=== PATIENT | female | born 1955 | race Caucasian/White ===

== ENCOUNTER 2019-01-30 09:04 | Day surgery (SDC) | payer OTHER, SELFPAY ==
--- NOTE | 2019-01-29 18:17 | PM.PREOP ---
Pre-operative Note Interval Note History & Physical reviewed/Exam performed by Physician: Yes Changes to H&P: No
--- NOTE | 2019-01-29 18:17 | PM.OP.1 ---
Operative Date/Time/Diagnoses Date of procedure: 01/30/19 Time of procedure: 10:45 Procedure & Clinicians Procedure: Preoperative diagnoses: 1. Advanced right nuclear sclerotic and cortical cataract. 2. Recent Vitreous detachment. 3. Ptosis 4. Previous trauma 5. Nystagmus 6. Macular degeneration. Postoperative diagnoses: 1. Complex Cataract removed by phacoemulsification with placement of posterior chamber intraocular lens. Procedure: Complex phacoemulsification with posterior chamber intraocular lens implant and use of Visudyne . Surgeon: Katty Bates MD Complications: None Specimen: None Implant: ZCBOO+22.5 Blood loss: None Anesthesia: Retrobulbar with monitored standby Description of procedure: Patient presents with a complaint of decreased vision due to cataract which is affecting activities of daily living. The patient wants surgery to improve vision. She has history of bilateral ocular trauma with swelling in childhood as well as corneal partial laceration. She has macular degeneration. A recent vitreous detachment without retinal tear. Some diplopia in díaz of gaze with restriction nystagmus and ptosis. She will require capsular dye in order to improve safety due to diffuse cortical anterior cataract. The patient was taken to the operating room and given IV sedation. A retrobulbar block consisting of 6 cc of 2% xylocaine without epinephrine mixed half and half with 0.5% Marcaine with 1 cc of hyaluronidase added is placed between the medial and lateral 1/3 of the inferior orbital rim. Lid akinesia is obtain with 1% xylocaine with epinephrine infiltrated along the lid margin. The eye is manually massaged for 30 sec, prepped using Betadine solution, and draped in the usual sterile fashion. Temporal approach was made, a 1 mm side-port incision was made 90? from the proposed clear corneal incision position. Phenylephrine 1.5% mixed with 1% xylocaine 0.2 cc was placed into the anterior chamber. An air bubble was placed. The Visudyne capsular dye was then diffusely placed over the anterior capsule to improve visibility. The diet and irrigated from the anterior chamber. Viscoat followed by Héctor was then placed. A 2.6 mm clear incision with a 2.6 mm blade was placed. A 360 degree capsulorrhexis style capsulotomy was then performed with a cystitome needle on a Healon. Hydrodelineation and hydrodissection were performed. The phacoemulsification unit is introduced, and sculpting notice used to groove the central lens. It is then removed in chopping mode. Epi nucleus is removed with epinuclear mode and irrigation aspiration was used to remove the peripheral cortex. The posterior capsule is polished. The intraocular lens is selected, inspected, power confirmed, and placed in the posterior chamber. The pupil was constricted with Miostat. There was no zonular weakness. The wound was stromally hydrated and tested for leaks, there was none and it was left sutureless. Vigamox 0.1 cc was placed into the anterior chamber. Kenalog 0.2 cc was placed in the superior subconjunctival space. A drop of antibiotic and was placed and the eye was patched and shielded. The patient was stable and returned to the recovery room in excellent condition. Dictated by: Katty Bates MD Copy to: [facility]
[2019-01-30] MEDS: PROPARACAINE 0.5% OPHTH SOL 2 DROPS EYE-OP (09:33)
[2019-01-30] MEDS: CATARACT EYE COMPOUND (10 DROPS/SYRINGE) 3 DROPS EYE-OP (09:45)
[2019-01-30 09:52] VITALS: BP 133/82; PULSE 100; RESP 16; TEMP 36.6; O2SAT 100; BMI 52.3
--- NOTE | 2019-01-30 11:16 | SUR.OPER ---
Supine on eye stretcher, head on extension cradle secured with tape. Arms tucked at sides with blanket. Pillow under knees.
[2019-01-30] MEDS: MOXIFLOXACIN OPHTH DROPS 3 ML BOTTLE 2 DROPS INJ ×2 (11:27)
[2019-01-30] MEDS: TRIAMCINOLONE 50 MG/5 ML VIAL INJ (11:28)
[2019-01-30] MEDS: HYALURONATE SODIUM 10 MG/ML SYRINGE INJ (11:29)
[2019-01-30] MEDS: CHONDROIDTIN/SOD HYALURONATE 1.05 ML SYRINGE INTRAOCULA (11:29)
[2019-01-30] MEDS: BALANCED SALT IRRIG SOLN NO.2 15 ML IRR (11:29)
[2019-01-30] MEDS: CARBACHOL 1.5 ML VIAL INJ (11:29)
[2019-01-30] MEDS: OFLOXACIN 0.3% OPHTH 5 ML 2 DROPS EYE-RIGHT (11:30)
[2019-01-30] MEDS: ERYTHROMYCIN OPHTH 1 GM OINT 1 APPLIC EYE-RIGHT (11:31)
[2019-01-30] MEDS: BALANCED SALT IRRIG SOLN NO.2 500 ML, EPINEPHrine 1 MG IRR (11:31)
[2019-01-30] MEDS: TRYPAN BLUE 0.5 ML SYRINGE INJ (11:32)
[2019-01-30 11:59] VITALS: BP 130/69; PULSE 82; RESP 15; TEMP 36; O2SAT 100
[2019-01-30] MEDS: LIDOCAINE 1% W/EPI INJ 20 ML INJ (12:00)
[2019-01-30] MEDS: LIDOCAINE 2% 4 ML, BUPIVACAINE 0.5% (PF) 4 ML, HYALURONIDASE 150 UNIT INJ (12:00)
[2019-01-30 12:14] VITALS: BP 136/71; PULSE 79; RESP 16; TEMP 36.3; O2SAT 100
== END 2019-01-30 12:22 | disposition home or self-care (01) ==
LOC: OR 09:07
PROVIDERS: PCP Family Medicine; Visit Provider Ophthalmology
PROC: (CPT 66982; principal; 2019-01-30 10:45)
DX: H25.811 Combined forms of age-related cataract, right eye (principal); H02.409 Unspecified ptosis of unspecified eyelid; H55.00 Unspecified nystagmus; H35.30 Unspecified macular degeneration; H43.819 Vitreous degeneration, unspecified eye
CPT/HCPCS: 66982; J0171; J2704; J3301; J3470

== ENCOUNTER 2019-02-13 09:54 | Day surgery (SDC) | payer OTHER, SELFPAY ==
--- NOTE | 2019-02-09 09:55 | PM.PREOP ---
Pre-operative Note Interval Note History & Physical reviewed/Exam performed by Physician: Yes Changes to H&P: No
--- NOTE | 2019-02-09 09:55 | PM.OP.1 ---
Procedure & Clinicians Procedure: Preoperative diagnoses: 1. Left cataract surgery. 2. Nuclear sclerotic and cortical cataract. Postoperative diagnoses: 1. Left cataract surgery with placement of a posterior chamber intraocular lens implant. Surgeon: Katty Bates MD Complications: none Specimen: None Implant: ZCBOO+22.0 Blood loss: None Anesthesia: Retrobulbar with monitored standby. Description of procedure: Dictated by: Katty Bates MD Copy to: [facility] Post operative diagnoses: 1. Cataract removed with use of capsular dye with placement of a posterior chamber intraocular lens. Procedure: Phacoemulsification with posterior chamber intraocular lens implant Surgeon: Katty Bates MD Blood loss: None Anesthesia: Retrobulbar with monitored standby Description of procedure: Patient has presented with decreased vision due to cataract which is affecting activities of daily living. The patient wants surgery to improve vision. The patient was taken to the operating room and given IV sedation. A retrobulbar block consisting of 6 cc of 2% xylocaine without epinephrine mixed half and half with 0.5% Marcaine with 1 cc of hyaluronidase added is placed between the medial and lateral 1/3 of the inferior orbital rim. Lid akinesia is obtain with 1% xylocaine with epinephrine infiltrated along the lid margin. The eye is manually massaged for 30 sec, prepped using Betadine solution, and draped in the usual sterile fashion. Temporal approach was made, a 1 mm side-port incision was performed 90 degrees from the planned corneal wound. Phenylephrine 1.5% mixed with 1% xylocaine 0.2 cc was placed into the anterior chamber. Viscoat followed by Provisc was then placed. A 2.6 mm clear incision with a 2.6 mm blade was placed. A 360 degree capsulorrhexis style capsulotomy was then performed with a cystitome needle on Provisc. Hydrodelineation and hydrodissection were performed. The phacoemulsification unit is introduced, and sculpting used to groove the central lens. It is then removed in chopping mode. Epi nucleus is removed with epinuclear mode and irrigation aspiration was used to remove the peripheral cortex. Dense 3:00 a.m. peripheral cortex was present and totally removed. The posterior capsule is polished. The intraocular lens is selected, inspected, power confirmed, and placed in the posterior chamber. The pupil was constricted with Miostat. The wound was stromally hydrated and tested for leaks, there was none and was left sutureless. Vigamox 0.1 cc was placed into the anterior chamber. Kenalog 0.2 cc was placed in the superior subconjunctival space. A drop of antibiotic and was placed and the eye was patched and shielded. The patient was stable and returned to the recovery room in excellent condition. Dictated by: Katty Bates MD Copy to: [facility]
[2019-02-13 10:25] VITALS: BP 151/83; PULSE 91; RESP 15; TEMP 36.5; O2SAT 100
[2019-02-13 10:34] VITALS: BMI 23.7
[2019-02-13] MEDS: PROPARACAINE 0.5% OPHTH SOL 2 DROPS EYE-OP (10:40)
[2019-02-13] MEDS: CATARACT EYE COMPOUND (10 DROPS/SYRINGE) 3 DROPS EYE-OP (10:51)
--- NOTE | 2019-02-13 12:52 | SUR.OPER ---
Supine on eye stretcher, head on extension cradle secured with tape. Arms tucked at sides with blanket. Pillow under knees.
[2019-02-13] MEDS: LIDOCAINE 2% 4 ML, BUPIVACAINE 0.5% (PF) 4 ML, HYALURONIDASE 150 UNIT INJ (12:55)
[2019-02-13] MEDS: LIDOCAINE 1% W/EPI INJ 20 ML INJ (12:56)
[2019-02-13] MEDS: MOXIFLOXACIN OPHTH DROPS 3 ML BOTTLE 2 DROPS INJ (12:56)
[2019-02-13] MEDS: TRIAMCINOLONE 50 MG/5 ML VIAL INJ ×2 (12:57)
[2019-02-13] MEDS: CHONDROIDTIN/SOD HYALURONATE 1.05 ML SYRINGE INTRAOCULA (12:58)
[2019-02-13] MEDS: HYALURONATE SODIUM 10 MG/ML SYRINGE INJ (12:58)
[2019-02-13] MEDS: BALANCED SALT IRRIG SOLN NO.2 15 ML IRR (12:58)
[2019-02-13] MEDS: CARBACHOL 1.5 ML VIAL INJ (12:59)
[2019-02-13] MEDS: OFLOXACIN 0.3% OPHTH 5 ML 2 DROPS EYE-LEFT (12:59)
[2019-02-13] MEDS: BALANCED SALT IRRIG SOLN NO.2 500 ML, EPINEPHrine 1 MG IRR (13:00)
[2019-02-13] MEDS: ERYTHROMYCIN OPHTH 1 GM OINT 1 APPLIC EYE-LEFT (13:01)
[2019-02-13 13:25] VITALS: BP 118/83; PULSE 86; RESP 18; TEMP 36.4; O2SAT 99
== END 2019-02-13 13:35 | disposition home or self-care (01) ==
LOC: OR 09:55
PROVIDERS: PCP Family Medicine; Visit Provider Ophthalmology
DX: H25.812 Combined forms of age-related cataract, left eye (principal); I10 Essential (primary) hypertension
CPT/HCPCS: J0171; J2704; J3301; J3470

== ENCOUNTER 2019-05-21 11:00 | Emergency (ER) | payer OTHER, SELFPAY ==
[2019-05-21 11:12] VITALS: BP 148/68; PULSE 90; RESP 12; TEMP 36.6; O2SAT 100
--- NOTE | 2019-05-21 11:51 | ED_ITS ---
HPI - Abdominal Pain <ROBEL Ridley - Last Filed: 05/21/19 18:45> General Chief Complaint: Abdominal Pain Stated Complaint: intestinal problems maybe apendicitis Time Seen by Provider: 05/21/19 11:04 Source: patient Mode of arrival: ambulatory Limitations: no limitations History of Present Illness HPI narrative: 63-year-old female with a history of IBS and hypertension, presents to the emergency department today complaining of nausea, bloating, and excessive gas for the past 3 days. She states she had a complete workup by her primary care provider on [facility] yesterday with blood test, pelvic exam, urine tests, and a complete physical exam, which she states was negative. She was then instructed to return home just monitor her symptoms. However, this morning she felt more nausea so she decided to be checked out. While she was on the Gem she ate some banana bread and started to feel better. Today she states she has a mild diffuse pain that occasionally localizes to her right flank and right side of her abdominal cavity. She denies any nausea at this time, vomiting, fevers, chills, diarrhea, constipation, chest pain, shortness of breath, or decreased appetite. Patient stated she got her pneumococcal vaccination on Monday which made her feel a little ?off?. She states that she does not want any further blood tests today, but consents to urine test. Onset (ago): day(s) Pain Consistency: intermittent Location: diffuse Severity scale (1-10): 1 Related Data Home Medications Medication Instructions Recorded Confirmed losartan 50 mg PO DAILY 05/21/19 05/21/19 metoprolol succinate [Toprol XL] 25 mg PO DAILY 05/21/19 05/21/19 Previous Rx's Medication Instructions Recorded ondansetron HCl [Zofran] 4 mg PO Q8-12H PRN #7 tab 05/21/19 Allergies Allergy/AdvReac Type Severity Reaction Status Date / Time Penicillins [PENICILLINS] Allergy Mild childhood Verified 02/13/19 10:56 allergy, rash Sulfa (Sulfonamide Allergy Unknown Verified 02/13/19 10:56 Antibiotics) [SULFA (SULFONAMIDE ANTIBIOTICS)] Review of Systems <ROBEL Ridley - Last Filed: 05/21/19 18:45> Review of Systems REVIEW OF SYSTEMS: GENERAL: Denies fever, chills, malaise, or wt. loss. HENT: No head trauma, sore throat, or dysphagia. EYES: No loss of vision, double vision, eye pain, or irritation. CARDIOVASCULAR: No chest pain, palpitations, or orthopnea. RESPIRATORY: No shortness of breath or cough. GASTROINTESTINAL: Complains of increased flatulence, see HPI GENITOURINARY: No flank pain, urinary incontinence, hesitancy, frequency, or dysuria. [No vaginal discharge or dyspareunia. Denies concerns for STIs] MUSCULOSKELETAL: No pain, weakness, or trauma. INTEGUMENTARY: No rash, lesions, or pruritus. NEURO: No numbness, tingling, memory loss, confusion, or headaches. PSYCH: No behavior or mood changes. PFSH <ROBEL Ridley - Last Filed: 05/21/19 18:45> Medical History Hypertension (Acute) Social History household members: other Social History household members: other Exam <ROBEL Ridley - Last Filed: 05/21/19 18:45> Initial Vital Signs Initial Vital Signs: Vital Signs Temperature 97.8 F 05/21/19 11:12 Pulse Rate 90 05/21/19 11:12 Respiratory Rate 12 05/21/19 11:12 Blood Pressure 148/68 H 05/21/19 11:12 Pulse Oximetry 100 05/21/19 11:12 PHYSICAL EXAMINATION: GENERAL: Well groomed, alert, and cooperative. Answers questions promptly and appropriately. Vital signs noted. HENT: Normocephalic, atraumatic. Hearing intact. Oral mucosa is pink and moist. EYES: Conjunctiva pink, sclera white, no periorbital swelling. CARDIOVASCULAR: S1 and S2 sounds normal. Regular rate and rhythm, no murmurs, clicks, or bruits. No pedal edema. RESPIRATORY: Normal respiratory rate, trachea midline, airway patent. No stridor, nasal flaring or accessory muscle use. Lungs are clear in all díaz without wheeze, rhonchi, or crackles. GASTROINTESTINAL: Bowel sounds normoactive. Abdomen is soft and non-tender. No organomegaly, no palpable masses. GENITALURINARY: No flank tenderness. MUSCULOSKELETAL: Normal gait and coordination. Equal tone and mass bilaterally. EXTREMITIES: CMS intact, no pedal edema. SKIN: Warm, dry, soft, appropriate color for ethnicity. No lesions, rashes, or wounds. NEURO: Alert and Oriented X 3. Good coordination. No ataxia, or sensory deficits, or cognitive issues. PSYCH: Appropriate affect and mood. <Pedro Pascal DO - Last Filed: 05/21/19 19:14> Initial Vital Signs Initial Vital Signs: Vital Signs Temperature 97.8 F 05/21/19 11:12 Pulse Rate 90 05/21/19 11:12 Respiratory Rate 12 05/21/19 11:12 Blood Pressure 148/68 H 05/21/19 11:12 Pulse Oximetry 100 05/21/19 11:12 Course <ROBEL Ridley - Last Filed: 05/21/19 18:45> Course Narrative: Extensive conversation was had with patient about repeating labs to monitor for any changes. Patient refused lab draw as she had just had labs done yesterday. Discussed the option of obtaining a CT scan however, was not concerning for an acute abdomen. Patient declined, she stated she would rather follow up with her primary care provider or return if her symptoms worsen. She agreed to have a urinalysis done. Reevaluation(s) Reevaluation #1: Re-evaluation after physical exam, patient more reassured that her symptoms are not indicative of appendicitis. Consultations Consultation #1: Patient staffed with Dr. Pascal. Vital Signs - 8 hr 05/21/19 11:12 Temperature 97.8 F Pulse Rate 90 Respiratory Rate 12 Blood Pressure 148/68 H Pulse Oximetry 100 <Pedro Pascal DO - Last Filed: 05/21/19 19:14> Vital Signs - 8 hr 05/21/19 11:12 Temperature 97.8 F Pulse Rate 90 Respiratory Rate 12 Blood Pressure 148/68 H Pulse Oximetry 100 MDM - Abdominal Pain <ROBEL Ridley - Last Filed: 05/21/19 18:45> Medical Records Attestation: I reviewed the patient's medical records. Lab Data Attestation: I reviewed the patient's lab results. Point of care testing: Urine Dip Bedside Urine Glucose Negative Bedside Urine Bilirubin - Negative Bedside Urine Ketone - Negative Urine Specific [place] 1.020 Bedside Urine Occult Blood - Negative Bedside Urine pH 6.0 Bedside Urine Protein - Negative Bedside Urine Urobilinogen - Negative Bedside Urine Nitrite - Negative Bedside Urine Leukocytes - Negative Esterase MDM Narrative Medical decision making narrative: Low suspicion for appendicitis or acute abdominal infection due to lack of fever, severe abdominal pain on exam, findings on urinalysis, or per patient report of serum laboratory findings yesterday her primary care provider's. Attempted to reassess abdominal labs and offered imaging, however patient refused both, which was fine as her exam was really not remarkable. It is possible that her symptoms may be caused by a virus or her IBS as her chief complaint was increased flatulence. Nausea medication was given, follow-up instructions discussed, return precautions discussed. <Pedro Pascal, - Last Filed: 05/21/19 19:14> Lab Data Point of care testing: Urine Dip Bedside Urine Glucose Negative Bedside Urine Bilirubin - Negative Bedside Urine Ketone - Negative Urine Specific [place] 1.020 Bedside Urine Occult Blood - Negative Bedside Urine pH 6.0 Bedside Urine Protein - Negative Bedside Urine Urobilinogen - Negative Bedside Urine Nitrite - Negative Bedside Urine Leukocytes - Negative Esterase Discharge Plan Departure Patient Disposition: Home Clinical Impression: Abdominal bloating Discharge Date/Time: 05/21/19 12:29 Interventions: ED Discharge Assessment Last Done: 05/21/19 12:28 Instructions: DI for Appendicitis -- Adult, DI for Irritable Bowel Syndrome Activity Restrictions/Additional Instructions: Thank you for entrusting me with your care today. As discussed, your you're urinalysis is normal. As you have requested, we did not repeat your labs and we did not do an abdominal CT because your physical exam was not concerning for any acute findings. However, if your symptoms worsen or you develop fevers, chest pain, severe abdominal pain, uncontrollable vomiting, or syncope please return to the emergency department. Follow up with her primary care provider in the next 1-2 weeks if symptoms continue for further testing. I prescribed you an anti-spasmodic to help with her abdominal symptoms if needed. Prescriptions: New ondansetron HCl [Zofran] 4 mg tablet 4 mg PO Q8-12H PRN (Reason: nausea and vomiting) Qty: 7 RF: 0 No Action losartan 50 MG tablet 50 mg PO DAILY RF: 0 metoprolol succinate [Toprol XL] 25 MG tablet extended release 24 hr 25 mg PO DAILY RF: 0 Referrals: Jaja Ratliff MD [Primary Care Provider] - <Pedro Pascal DO - Last Filed: 05/21/19 19:14> Cosign ED Attending Cosignature Attestation: I was available for consultation during this patient's emergency department encounter
== END 2019-05-21 12:29 | disposition home or self-care (01) ==
PROVIDERS: Emergency Provider Nurse Practitioner; PCP Family Medicine
DX: R14.0 Abdominal distension (gaseous) (principal)
CPT/HCPCS: 81003; 99283

== ENCOUNTER → 2019-08-09 11:43 | Outpatient (CLI) | payer OTHER, SELFPAY ==
--- NOTE | 2019-08-09 | DI.MG.S_ITS ---
BILATERAL DIGITAL SCREENING MAMMOGRAM 3D/2D WITH CAD: 08/09/2019 CLINICAL: Routine screening. Baseline exam. No prior exams were available for comparison. There are scattered fibroglandular elements in both breasts. Current study was also evaluated with a Computer Aided Detection (CAD) system. There is a focal asymmetry in the left breast central to the nipple anterior depth. No other significant masses, calcifications, or other findings are seen in either breast. IMPRESSION: INCOMPLETE: NEEDS ADDITIONAL IMAGING EVALUATION The focal asymmetry in the left breast is indeterminate. Additional views with possible ultrasound are recommended. This exam was interpreted at Station ID: [id number]. NOTE: For mammograms, a report in lay terms will be sent to the patient. Approximately 15% of breast malignancies will not be visualized mammographically. In the management of a palpable breast mass, a negative mammogram must not discourage biopsy of a clinically suspicious lesion. Electronically Signed By: Ligia koenig/hardik:08/09/2019 13:06:09 letter sent: Additional Imaging Needed ACR BI-RADS Category 0: Incomplete [id number]
== END ==
PROVIDERS: PCP Family Medicine; Visit Provider Family Medicine
DX: Z12.31 Encounter for screening mammogram for malignant neoplasm of breast (principal); Z13.820 Encounter for screening for osteoporosis; M85.851 Other specified disorders of bone density and structure, right thigh; Z78.0 Asymptomatic menopausal state; Z87.891 Personal history of nicotine dependence
CPT/HCPCS: 77063; 77067; 77080

== ENCOUNTER → 2019-09-03 13:10 | Outpatient (CLI) | payer OTHER, SELFPAY ==
--- NOTE | 2019-09-03 | DI.MG.S_ITS ---
UNILATERAL LEFT DIGITAL DIAGNOSTIC MAMMOGRAM 3D/2D WITH ADDITIONAL VIEWS: 09/03/2019 CLINICAL: Additional evaluation requested from prior study. Comparison is made to exam dated: 08/09/2019 [facility]. There are scattered fibroglandular elements in left breast. Previously noted focal asymmetry in the left breast central to the nipple anterior depth on comparison screening mammogram of 08/09/19 has the appearance of benign fibroglandular tissues on additional views. IMPRESSION: INCOMPLETE: NEEDS ADDITIONAL IMAGING EVALUATION Previously noted focal asymmetry in the left breast central to the nipple anterior depth on comparison screening mammogram of 08/09/19 has the appearance of benign fibroglandular tissues on additional views. A targeted ultrasound is recommended and will be performed immediately following this exam. This exam was interpreted at Station ID: [id number]. NOTE: For mammograms, a report in lay terms will be sent to the patient. Approximately 15% of breast malignancies will not be visualized mammographically. In the management of a palpable breast mass, a negative mammogram must not discourage biopsy of a clinically suspicious lesion. Electronically Signed By: Brenton Jimenez M.D. ecl/:09/03/2019 14:25:20 ACR BI-RADS Category 0: Incomplete [id number]
--- NOTE | 2019-09-03 | DI.US.S_ITS ---
LIMITED ULTRASOUND OF LEFT BREAST: 09/03/2019 CLINICAL: Patient returns today to evaluate an asymmetry in the left breast. Comparison is made to exams dated: 09/03/2019 mammogram and 08/09/2019 mammogram - [facility]. Color flow and real-time ultrasound of the left breast 11-1 o'clock, 5-7 o'clock, and retroareolar regions were performed. Hogan scale images of the real-time examination were reviewed. There is a 0.3 x 0.2 x 0.2 cm oval indistinct hypoechoic focus with mixed posterior acoustic shadowing and enhancement, low-level internal echogenic foci, and no vascularity on Doppler ultrasound located in the left breast at 6:00 position 4 cm from the nipple. This may or may not correlate with the asymmetry seen on comparison screening and diagnostic mammography. There is also a 0.4 x 0.2 x 1.0 cm oval circumscribed peripherally hypoechoic and centrally hyperechoic mass in the left breast at 12:00 position 3 cm from the nipple which demonstrates minimal central hilar-type vascularity on Doppler ultrasound, most consistent with an intramammary lymph node. IMPRESSION: PROBABLY BENIGN 0.3 x 0.2 x 0.2 cm probable complicated cyst in the left breast at 6:00 position 4 cm from the nipple, which may or may not correlate with findings seen on comparison diagnostic mammography. There is also a 1.0 x 0.4 x 0.2 cm probable intramammary lymph node in the left breast at 12:00 position 3 cm from nipple. A followup diagnostic mammogram and targeted ultrasound in 6 months is recommended to demonstrate continued stability. The patient is advised to monitor her breasts and to return sooner for re-evaluation should she feel anything grow or change. This exam was interpreted at Station ID: [id number]. Electronically Signed By: Brenton Jimenez M.D. ecl/:09/03/2019 16:10:05 letter sent: Followup Recommended Ultrasound BI-RADS: 3 Probably benign
== END ==
PROVIDERS: PCP Family Medicine; Visit Provider Family Medicine
DX: R92.8 Other abnormal and inconclusive findings on diagnostic imaging of breast (principal); N63.25 Unspecified lump in the left breast, overlapping quadrants
CPT/HCPCS: 76642; 77065; G0279

== ENCOUNTER → 2020-07-28 12:59 | Outpatient (CLI) | payer MEDICARE, SELFPAY ==
--- NOTE | 2020-07-28 | DI.US.S_ITS ---
LIMITED ULTRASOUND OF LEFT BREAST: 07/28/2020 CLINICAL: 6 month follow-up of cyst/node. Comparison is made to exams dated: 07/28/2020 mammogram, 09/03/2019 ultrasound, 09/03/2019 mammogram, and 08/09/2019 mammogram - [facility]. Color flow and real-time ultrasound of the left breast were performed. Hogan scale images of the real-time examination were reviewed. There is a benign 0.5 cm oval normal lymph node with a circumscribed margin in the left breast at 12 o'clock anterior depth 3 cm from the nipple. This oval normal lymph node displays fatty hilum and no posterior acoustic shadowing or enhancement. This abnormality is decreased in size and correlates with mammography findings. No cyst or mass in the left breast at 6 o'clock anterior depth at the site of prior ultrasound finding. IMPRESSION: BENIGN There is no sonographic evidence of malignancy. Cyst at 6:00 anterior depth has resolved. Benign lymph node at 12:00 anterior depth has decreased in size. A 1 year screening mammogram is recommended. Exam findings were conveyed to the patient. This exam was interpreted at Station ID: [id number]. Electronically Signed By: Jeremy Delarosa M.D. [facility]/:07/28/2020 14:18:55 letter sent: Normal Exam Ultrasound BI-RADS: 2 Benign
--- NOTE | 2020-07-28 | DI.MG.S_ITS ---
BILATERAL DIGITAL DIAGNOSTIC MAMMOGRAM 3D/2D SHORT-TERM FOLLOW-UP: 07/28/2020 CLINICAL: Patient returns for a 12 month follow up of the left breast, due for bilateral exam. Comparison is made to exams dated: 09/03/2019 mammogram, 08/09/2019 mammogram, and 09/03/2019 [facility]. There are scattered fibroglandular elements in both breasts. There is a focal asymmetry in the left breast central to the nipple anterior depth. This is decreased in size. There also is a stable asymmetry in the left breast anterior depth superior region seen on the mediolateral oblique view only. No other significant masses, calcifications, or other findings are seen in either breast. IMPRESSION: INCOMPLETE: NEEDS ADDITIONAL IMAGING EVALUATION 1) The focal asymmetry in the left breast central to the nipple anterior depth is decreased in size and has a differential diagnosis of a cyst or fibroglandular tissue and is indeterminate. 2) The stable asymmetry in the left breast anterior depth superior region seen on the mediolateral oblique view only resembles a lymph node and is indeterminate. A targeted ultrasound is recommended and will immediately follow. This exam was interpreted at Station ID: [id number]. NOTE: For mammograms, a report in lay terms will be sent to the patient. Approximately 15% of breast malignancies will not be visualized mammographically. In the management of a palpable breast mass, a negative mammogram must not discourage biopsy of a clinically suspicious lesion. Electronically Signed By: Jeremy Delarosa M.D. slc/:07/28/2020 14:01:17 ACR BI-RADS Category 0: Incomplete [id number]
== END ==
PROVIDERS: PCP Family Medicine; Referring Provider Family Medicine; Visit Provider Family Medicine
DX: R92.8 Other abnormal and inconclusive findings on diagnostic imaging of breast (principal); N64.89 Other specified disorders of breast
CPT/HCPCS: 76642; 77066; G0279

== ENCOUNTER → 2021-06-14 11:18 | Outpatient (CLI) | payer MEDICARE, SELFPAY ==
[2021-06-14 19:05] LABS: Alanine Aminotransferase 20 IU/L (<35); Albumin Globulin Ratio 1.3 (1.0-2.8); Alkaline Phosphatase 73 U/L (38-126); Aspartate Aminotransferase 34 IU/L (14-36); BUN Creatinine Ratio 17.3 (6-22); Bilirubin Total 0.6 mg/dL (0.2-1.3); Blood Urea Nitrogen 13 mg/dL (7-17); Calcium 10.4 mg/dL (8.4-10.2); Carbon Dioxide 28 mmol/L (22-32); Chloride 104 mmol/L (98-107); Estimated Glomerular Filt Rate > 60.0 mL/min (>60); Globulin 3.1 g/dL (1.7-4.1); Glucose 104 mg/dL (80-110); HEMOLYSIS < 15 (0-50); Potassium 4.5 mmol/L (3.4-5.1); Sodium 138 mmol/L (137-145); Total Protein 7.1 g/dL (6.3-8.2)
[2021-06-14 19:12] LABS: Add Manual Diff / Slide Review NO; Basophils Absolute Auto 100 /uL (0-100); Basophils Percent Auto 1.2 % (0-2); Eosinophils Absolute Auto 100 /uL (0-450); Eosinophils Percent Auto 1.9 % (2-4); Hematocrit 40.9 % (36-46); Hemoglobin 13.7 g/dL (12.0-16.0); Lymphocytes Absolute Auto 2700 /uL (1100-4500); Lymphocytes Percent Auto 43.4 % (25-40); Mean Corpuscular HGB Conc 33.6 % (30-36); Mean Corpuscular Hemoglobin 30.2 PG (26-34); Monocytes Absolute Auto 500 /uL (0-900); Monocytes Percent Auto 8.2 % (3-14); Neutrophils Absolute Auto 2900 /uL (1500-7000); Neutrophils Percent Auto 45.3 % (50-75); Platelet Count 270 X10^3/uL (150-400); Red Blood Cell Count 4.55 X10^6/uL (4.0-5.2); Red Cell Distribution Width 12.3 % (11.6-14.8); White Blood Cell Count 6.3 X10^3/uL (4.5-11.0)
[2021-06-14 19:36] LABS: Thyroid Stimulating Hormone 1.68 uIU/mL (0.47-4.68)
[2021-06-14 19:55] LABS: Vitamin B12 342 pg/mL (239-931)
== END ==
PROVIDERS: PCP Physician Assistant Medical; Visit Provider Family Medicine
DX: R53.83 Other fatigue (principal)
CPT/HCPCS: 80053; 82607; 84443; 85025

== ENCOUNTER → 2021-12-09 10:04 | Outpatient (CLI) | payer MEDICARE, SELFPAY ==
--- NOTE | 2021-12-09 | DI.US.S_ITS ---
PROCEDURE: US ABDOMEN COMPLETE INDICATIONS: RUQ PAIN TECHNIQUE: Real-time scanning was performed of the abdominal and retroperitoneal organs, with image documentation. COMPARISON: None. FINDINGS: Liver: Liver is normal in size and homogeneous in echotexture. Gallbladder: Nondilated. There is a nonmobile stone at the gallbladder neck measuring 0.4 cm. Several additional small mobile gallstones. Normal gallbladder wall thickness. No pericholecystic fluid. Negative sonographic Aldrich's sign. Biliary ducts: Intrahepatic bile ducts are non-dilated. Extrahepatic bile duct caliber measures 3 mm. Normal is 6-7 mm or less in diameter, or 10 mm or less post-cholecystectomy. Pancreas: Visualized portions of the pancreas are sonographically normal. Spleen: Spleen is normal in size and homogeneous in echotexture. Kidneys: Kidneys are normal in size and echotexture. Right kidney measures 9.9 cm long; left kidney measures 10.5 cm long. No hydronephrosis or nephrolithiasis. No solid masses. Aorta: Visualized aorta is normal in caliber at less than 3 cm. Iliacs: Proximal common iliac arteries are normal in caliber at less than 2.5 cm. IVC: Intrahepatic inferior vena cava is patent. Miscellaneous: No free abdominal fluid. IMPRESSION: 1. Nonmobile gallstone at the gallbladder neck measuring 0.4 cm. No pericholecystic fluid or gallbladder wall thickening to suggest acute cholecystitis. 2. No biliary ductal dilatation. 3. No hydronephrosis. Dictated by: Jeremy Delarosa M.D. on 12/09/2021 at 11:37 Approved by: Jeremy Delarosa M.D. on 12/09/2021 at 11:40
== END ==
PROVIDERS: PCP Physician Assistant Medical; Referring Provider Family Medicine; Visit Provider Family Medicine
DX: K80.20 Calculus of gallbladder without cholecystitis without obstruction (principal); R10.11 Right upper quadrant pain
CPT/HCPCS: 76700

== ENCOUNTER 2021-12-09 11:56 | Emergency (ER) | payer MEDICARE, SELFPAY ==
[2021-12-09 12:38] VITALS: BP 141/66; PULSE 93; RESP 14; TEMP 35.7; O2SAT 99; BMI 25.4
[2021-12-09 15:33] LABS: Add Manual Diff / Slide Review NO; Basophils Absolute Auto 100 /uL (0-100); Eosinophils Absolute Auto 0 /uL (0-450); Eosinophils Percent Auto 0.5 % (2-4); Hematocrit 40.8 % (36-46); Hemoglobin 13.8 g/dL (12.0-16.0); Lymphocytes Absolute Auto 2700 /uL (1100-4500); Lymphocytes Percent Auto 31.7 % (25-40); Mean Corpuscular HGB Conc 33.9 % (30-36); Mean Corpuscular Hemoglobin 29.8 PG (26-34); Mean Corpuscular Volume 87.8 fL (80-100); Monocytes Absolute Auto 800 /uL (0-900); Monocytes Percent Auto 8.8 % (3-14); Neutrophils Absolute Auto 5000 /uL (1500-7000); Platelet Count 288 X10^3/uL (150-400); Red Blood Cell Count 4.64 X10^6/uL (4.0-5.2); Red Cell Distribution Width 12.3 % (11.6-14.8); White Blood Cell Count 8.6 X10^3/uL (4.5-11.0)
[2021-12-09 15:42] VITALS: BP 159/82; PULSE 93; O2SAT 100
[2021-12-09 15:45] LABS: Alanine Aminotransferase 18 IU/L (<35); Albumin 4.6 g/dL (3.5-5.0); Albumin Globulin Ratio 1.5 (1.0-2.8); Alkaline Phosphatase 71 U/L (38-126); Aspartate Aminotransferase 33 IU/L (14-36); Bilirubin Total 0.7 mg/dL (0.2-1.3); Blood Urea Nitrogen 12 mg/dL (7-17); Calcium 10.1 mg/dL (8.4-10.2); Carbon Dioxide 26 mmol/L (22-32); Chloride 105 mmol/L (98-107); Estimated Glomerular Filt Rate > 60.0 mL/min (>60); Globulin 3.1 g/dL (1.7-4.1); Glucose 103 mg/dL (80-110); HEMOLYSIS 29 (0-50); Potassium 4.2 mmol/L (3.4-5.1); Sodium 137 mmol/L (137-145); Total Protein 7.7 g/dL (6.3-8.2)
[2021-12-09 15:46] LABS: Lipase 144 U/L (23-300)
--- NOTE | 2021-12-09 15:51 | ED.GENADULT ---
HPI - General Adult General Chief complaint: Abdominal Pain Stated complaint: Radiologist sent down after gallbladder US Time Seen by Provider: 12/09/21 12:34 Source: patient Mode of arrival: Ambulatory Limitations: no limitations History of Present Illness HPI narrative: Patient is a 66-year-old female. Over the past 2 weeks she has had occasional right upper quadrant abdominal pain. Went to go see her primary doctor who ordered an outpatient right upper quadrant ultrasound. This was performed today. She was sent to the emergency department because of the findings on the ultrasound. The time my evaluation patient is not any fevers. No vomiting. Her pain is much better than what it has been in the past. No change in bowel habits. No urinary symptoms. Has had a hysterectomy but no other abdominal surgery. Related Data Home Medications Medication Instructions Recorded Confirmed losartan 50 mg tablet 50 mg PO DAILY 05/21/19 04/23/21 metoprolol succinate 25 mg 25 mg PO DAILY 05/21/19 04/23/21 tablet,extended release 24 hr (Toprol XL) loratadine PO 04/22/21 04/23/21 magnesium oxide 400 mg PO DAILY 04/22/21 04/23/21 multivitamin with minerals PO 04/22/21 04/23/21 [Multiple Vitamin] Allergies Allergy/AdvReac Type Severity Reaction Status Date / Time Sulfa (Sulfonamide Allergy Intermediate swelling Verified 12/09/21 12:38 Antibiotics) [SULFA (SULFONAMIDE ANTIBIOTICS)] Penicillins [PENICILLINS] Allergy Mild childhood Verified 12/09/21 12:38 allergy, rash Review of Systems Constitutional Constitutional: Denies fever(s) Cardiovascular Cardiovascular: Denies lightheadedness and Denies dyspnea Respiratory Respiratory: Denies dyspnea Gastrointestinal Gastrointestinal: Reports as per HPI and Reports system reviewed and no additional complaints, except as documented Musculoskeletal Musculoskeletal: Reports system reviewed and no additional complaints, except as documented Integumentary/Breasts Skin/Breast: Reports system reviewed and no additional complaints, except as documented Neurologic Neurologic: Reports system reviewed and no additional complaints, except as documented Psychiatric Psychiatric: Reports system reviewed and no additional complaints, except as documented Hematologic/Lymphatic On Anticoagulants: No Patient History Medical History Abnormal blood creatinine level Abnormal glandular Papanicolaou smear of cervix Age-related cataract of both eyes Atrial premature beats Candidiasis of vulva and vagina Dry age-related macular degeneration Hypertension Meniere's disease, bilateral Other hyperlipidemia Palpitations Periodontal disease Raynauds phenomenon Sebaceous cyst Social History household members: other Smoking Status: Former smoker Smoking Status: Former smoker alcohol intake frequency: holidays/special occasions only Substance Use Type: does not use Exam Initial Vital Signs Initial Vital Signs: Vital Signs Temperature 96.2 F L 12/09/21 12:38 Pulse Rate 93 H 12/09/21 12:38 Respiratory Rate 14 12/09/21 12:38 Blood Pressure 141/66 H 12/09/21 12:38 Pulse Oximetry 99 12/09/21 12:38 Const General: cooperative and healthy appearing HENMT Head: normal to inspection and normocephalic Resp Effort & Inspection: normal respiratory effort Auscultation: clear to auscultation bilaterally Cardio Rate: regular rate Rhythm: regular rhythm GI Inspection: normal to inspection Palpation: No soft, No rigid and tender (Slight tenderness right upper quadrant) Extrem General: normal to inspection and capillary refill normal Psych Appearance: grossly normal and well kempt Course Orders Ordered: ED Orders 12/09/21 15:24 Complete Blood Count AUTO DIFF Stat Comprehensive Metabolic Panel Stat Lipase Stat 12/09/21 15:30 COVID19 - ADMIT ([employer] swab/PCR) Stat Vital Signs Vital signs: Vital Signs - 8 hr 12/09/21 12:38 12/09/21 15:42 Temperature 96.2 F L Pulse Rate 93 H 93 H Respiratory Rate 14 Blood Pressure 141/66 H 159/82 H Pulse Oximetry 99 100 Medical Decision Making Lab Data Lab results reviewed: Yes I reviewed the patient's lab results. Result diagrams: 12/09/21 15:24 12/09/21 15:24 Labs: Lab Results 12/09/21 12/09/21 12/09/21 Range/Units 15:24 15:24 15:24 WBC 8.6 (4.5-11.0) X10^3/uL RBC 4.64 (4.0-5.2) X10^6/uL Hgb 13.8 (12.0-16.0) g/dL Hct 40.8 (36-46) % MCV 87.8 (80-100) fL MCH 29.8 (26-34) PG MCHC 33.9 (30-36) % RDW 12.3 (11.6-14.8) % Plt Count 288 (150-400) X10^3/uL Neut % (Auto) 58.0 (50-75) % Lymph % (Auto) 31.7 (25-40) % [place] % (Auto) 8.8 (3-14) % Eos % (Auto) 0.5 L (2-4) % Baso % (Auto) 1.0 (0-2) % Neut # (Auto) 5000 (0728-8622) /uL Lymph # (Auto) 2700 (8026-9254) /uL [place] # (Auto) 800 (0-900) /uL Eos # (Auto) 0 (0-450) /uL Baso # (Auto) 100 (0-100) /uL Sodium 137 (137-145) mmol/L Potassium 4.2 (3.4-5.1) mmol/L Chloride 105 (98-107) mmol/L Carbon Dioxide 26 (22-32) mmol/L BUN 12 (7-17) mg/dL Creatinine 0.86 (0.52-1.04) mg/dL Estimated GFR > 60.0 (>60) mL/min BUN/Creatinine Ratio 14.0 (6-22) Glucose 103 (80-110) mg/dL Calcium 10.1 (8.4-10.2) mg/dL Total Bilirubin 0.7 (0.2-1.3) mg/dL AST 33 (14-36) IU/L ALT 18 (<35) IU/L Alkaline Phosphatase 71 (38-126) U/L Total Protein 7.7 (6.3-8.2) g/dL Albumin 4.6 (3.5-5.0) g/dL Globulin 3.1 (1.7-4.1) g/dL Albumin/Globulin Ratio 1.5 (1.0-2.8) Lipase 144 (23-300) U/L SARS-CoV-2 (PCR) (Negative) 12/09/21 Range/Units 15:30 WBC (4.5-11.0) X10^3/uL RBC (4.0-5.2) X10^6/uL Hgb (12.0-16.0) g/dL Hct (36-46) % MCV (80-100) fL MCH (26-34) PG MCHC (30-36) % RDW (11.6-14.8) % Plt Count (150-400) X10^3/uL Neut % (Auto) (50-75) % Lymph % (Auto) (25-40) % [place] % (Auto) (3-14) % Eos % (Auto) (2-4) % Baso % (Auto) (0-2) % Neut # (Auto) (8124-1491) /uL Lymph # (Auto) (7790-6618) /uL [place] # (Auto) (0-900) /uL Eos # (Auto) (0-450) /uL Baso # (Auto) (0-100) /uL Sodium (137-145) mmol/L Potassium (3.4-5.1) mmol/L Chloride (98-107) mmol/L Carbon Dioxide (22-32) mmol/L BUN (7-17) mg/dL Creatinine (0.52-1.04) mg/dL Estimated GFR (>60) mL/min BUN/Creatinine Ratio (6-22) Glucose (80-110) mg/dL Calcium (8.4-10.2) mg/dL Total Bilirubin (0.2-1.3) mg/dL AST (14-36) IU/L ALT (<35) IU/L Alkaline Phosphatase (38-126) U/L Total Protein (6.3-8.2) g/dL Albumin (3.5-5.0) g/dL Globulin (1.7-4.1) g/dL Albumin/Globulin Ratio (1.0-2.8) Lipase (23-300) U/L SARS-CoV-2 (PCR) Negative (Negative) MDM Narrative Medical decision making narrative: The ultrasound that was performed earlier today does show cholelithiasis but no signs of acute cholecystitis. Her labs today are unremarkable. I did discuss the case with Dr. Phan on-call for General surgery who evaluated the patient here in the emergency department. Unfortunately there was no bed availability here at the facility given the fact that she has no fevers, normal labs, no signs of acute cholecystitis noted on the ultrasound there is no indication for emergent surgery. Will discharge patient with instructions to follow-up with general surgery. She was given return precautions. She expressed understanding and agreement. Discharge Plan Departure Patient Disposition: Home Clinical Impression: Cholelithiasis Instructions: Gallstones (Alternative Therapy), DI for Gallstones Activity Restrictions/Additional Instructions: Continue to take all of your medications as directed. You can contact the [facility] group at the number provided below to schedule an outpatient follow-up. Return to the emergency department for any new or worsening symptoms. Prescriptions: No Action losartan 50 MG tablet 50 mg PO DAILY 0RF metoprolol succinate [Toprol XL] 25 MG tablet extended release 24 hr 25 mg PO DAILY 0RF magnesium oxide 400 mg magnesium tablet 400 mg PO DAILY 0RF loratadine PO 0RF multivitamin with minerals PO 0RF Referrals: Jaja Ratliff MD [Primary Care Provider] - Boo Phan MD [Physician] -
[2021-12-09 16:23] LABS: COVID19 - ADMIT (NP swab/PCR) Negative (Negative)
== END 2021-12-09 16:47 | disposition home or self-care (01) ==
PROVIDERS: Emergency Provider Emergency Medicine; PCP Family Medicine
DX: K80.20 Calculus of gallbladder without cholecystitis without obstruction (principal); Z87.891 Personal history of nicotine dependence; Z20.822 Contact with and (suspected) exposure to COVID-19; R10.11 Right upper quadrant pain
CPT/HCPCS: 36415; 76700; 80053; 83690; 85025; 87635; 99283; 99284; C9803

== ENCOUNTER 2021-12-10 11:00 | Emergency (ER) | payer MEDICARE, SELFPAY ==
[2021-12-10 11:03] VITALS: BP 145/65; PULSE 95; RESP 15; TEMP 37.2; O2SAT 98; BMI 25.4
--- NOTE | 2021-12-10 12:40 | DI.US.S_ITS ---
PROCEDURE: US ABDOMEN LIMITED INDICATIONS: TIGHT BAND AROUND ABDOMEN. FOLLOW UP ULTRASOUND YESTERDAY - KNOWN GALLSTONE. TECHNIQUE: Real-time scanning was performed of the abdominal and retroperitoneal organs, with image documentation. COMPARISON: Located Within [facility], US, US ABDOMEN COMPLETE, 12/09/2021, 10:55. FINDINGS: Liver: Liver is normal in size and homogeneous in echotexture. Gallbladder: Redemonstration of previously seen non mobile gallstone within the gallbladder neck measuring approximately 3-4 mm in size. There is no wall thickening. No pericholecystic fluid. No abnormal sonographic Aldrich sign. Additional mobile gallstones are seen in the gallbladder body. Biliary ducts: Intrahepatic bile ducts are non-dilated. Extrahepatic bile duct caliber measures 2 mm. Normal is 6-7 mm or less in diameter, or 10 mm or less post-cholecystectomy. Pancreas: Pancreas not well seen on today's study. Miscellaneous: No free abdominal fluid. IMPRESSION: 1. Redemonstration of known cholelithiasis as well as a 3-4 mm non mobile gallstone within the gallbladder neck. Otherwise, no sonographic evidence for acute cholecystitis. 2. No biliary ductal dilatation. Dictated by: Mani Malik M.D. on 12/10/2021 at 13:51 Approved by: Mani Malik M.D. on 12/10/2021 at 13:54
--- NOTE | 2021-12-10 12:42 | ED_ITS ---
HPI - Abdominal Pain <Jameel Moralez PA-C - Last Filed: 12/10/21 14:14> General Chief Complaint: Abdominal Pain Stated Complaint: gallbladder pain Time Seen by Provider: 12/10/21 12:35 Source: patient Mode of arrival: Ambulatory History of Present Illness HPI narrative: Patient is a 66-year-old female presents to the ED complaining of right upper quadrant abdominal pain. She was seen yesterday in the ER and was found to have a gallstone encased in her gallbladder. No evidence of any infection at the time patient was discharged home pain has increased and become worse she presents today for re-evaluation. No reported nausea vomiting or diarrhea no fever no cough no chills. She does state that she has on occasion difficulty breathing secondary to the gallstones. Related Data Home Medications Medication Instructions Recorded Confirmed losartan 50 mg tablet 50 mg PO DAILY 05/21/19 04/23/21 metoprolol succinate 25 mg 25 mg PO DAILY 05/21/19 04/23/21 tablet,extended release 24 hr (Toprol XL) loratadine PO 04/22/21 04/23/21 magnesium oxide 400 mg PO DAILY 04/22/21 04/23/21 multivitamin with minerals PO 04/22/21 04/23/21 [Multiple Vitamin] Previous Rx's Medication Instructions Recorded dicyclomine 20 mg tablet 20 mg PO QID #14 tab 12/10/21 Allergies Allergy/AdvReac Type Severity Reaction Status Date / Time Sulfa (Sulfonamide Allergy Intermediate swelling Verified 12/10/21 11:03 Antibiotics) [SULFA (SULFONAMIDE ANTIBIOTICS)] Penicillins [PENICILLINS] Allergy Mild childhood Verified 12/10/21 11:03 allergy, rash Review of Systems <Jameel Moralez PA-C - Last Filed: 12/10/21 14:14> Review of Systems ROS Unobtainable: All systems reviewed & are unremarkable except as noted in HPI and below Constitutional Constitutional: Denies chills, Denies fatigue, Denies fever(s), Denies frequent falls, Denies lethargy and Denies weakness Eyes Eyes: Denies change in vision, Denies eye discharge, Denies irritation and Denies loss of vision ENT Ears, Nose, Mouth, and Throat: Denies change in voice, Denies dizziness, Denies neck pain, Denies sore throat and Denies throat swelling Cardiovascular Cardiovascular: Denies chest pain, Denies irregular heart rhythm, Denies lightheadedness, Denies palpitations, Denies dyspnea, Denies dyspnea on exertion and Denies orthopnea Respiratory Respiratory: Denies cough, Denies dyspnea, Denies dyspnea on exertion and Denies wheezing Gastrointestinal Gastrointestinal: Reports abdominal pain, Denies change in bowel habits, Denies diarrhea, Denies nausea and Denies vomiting Genitourinary Genitourinary: Denies hematuria, Denies flank pain, Denies urinary incontinence and Denies urinary urgency Musculoskeletal Musculoskeletal: Denies back pain, Denies muscle weakness, Denies neck pain, Denies numbness and Denies tingling Integumentary/Breasts Skin/Breast: Denies pruritus, Denies erythema, Denies rash and Denies wounds Neurologic Neurologic: Denies behavioral changes, Denies confusion, Denies dizziness, Denies frequent falls, Denies loss of vision, Denies numbness, Denies tingling and Denies weakness Psychiatric Psychiatric: Denies anxiety, Denies behavioral changes, Denies confusion, Denies depression, Denies homicidal ideation and Denies suicidal ideation Endocrine Endocrine: Denies fatigue, Denies flushing and Denies palpitations Hematologic/Lymphatic Hematologic/Lymphatic: Denies easy bruising Allergic/Immunologic Allergic/Immunologic: Denies urticaria, Denies throat swelling and Denies wheezing Patient History <Jameel Moralez PA-C - Last Filed: 12/10/21 14:14> Medical History Abnormal blood creatinine level Abnormal glandular Papanicolaou smear of cervix Age-related cataract of both eyes Atrial premature beats Candidiasis of vulva and vagina Dry age-related macular degeneration Hypertension Meniere's disease, bilateral Other hyperlipidemia Palpitations Periodontal disease Raynauds phenomenon Sebaceous cyst Social History household members: other Smoking Status: Former smoker Smoking Status: Former smoker alcohol intake frequency: holidays/special occasions only Substance Use Type: does not use Exam <Jameel Moralez PA-C - Last Filed: 12/10/21 14:14> Initial Vital Signs Initial Vital Signs: Vital Signs Temperature 98.9 F 12/10/21 11:03 Pulse Rate 95 H 12/10/21 11:03 Respiratory Rate 15 12/10/21 11:03 Blood Pressure 145/65 H 12/10/21 11:03 Pulse Oximetry 98 12/10/21 11:03 Const General: cooperative, healthy appearing and comfortable Nutritional Appearance: average body habitus Orientation: Orientation [facility] Head: normal to inspection, normocephalic and atraumatic Ears: hearing grossly normal bilaterally Nose: external nose normal Face and sinus: normal facial exam Mouth: oral mucosae normal Resp Effort & Inspection: normal respiratory effort and able to speak in complete sentences Auscultation: clear to auscultation bilaterally Percussion: percussion normal Cardio Palpation: normal PMI Rate: regular rate Rhythm: regular rhythm Heart Sounds: S1 normal and S2 normal GI Inspection: normal to inspection Palpation: tender (right upper quad) Percussion: normal to percussion Auscultation: normal bowel sounds Course <ANT Salcedo Last Filed: 12/10/21 14:14> Orders Ordered: ED Orders 12/10/21 12:40 US abdomen limited Stat Complete Blood Count AUTO DIFF Stat Comprehensive Metabolic Panel Stat Lipase Stat Partial Thromboplastin Time Stat Prothrombin Time INR Stat Discontinued Medications Sodium Chloride (Normal Saline 0.9%) 1,000 mls @ 150 mls/hr IV CONT LORE Last Infusion: 12/10/21 14:36 Dose: 0 mls/hr Documented by: Admin: 12/10/21 12:54 Dose: 150 mls/hr Documented by: JONATHAN Vital Signs Vital signs: Vital Signs - 8 hr 12/10/21 13:55 Pulse Rate 78 Respiratory Rate 14 Blood Pressure 126/60 Pulse Oximetry 99 MDM - Abdominal Pain <ANT Salcedo Filed: 12/10/21 14:14> Differential Diagnosis Differential diagnosis: Likely abdominal pain Lab Data Result diagrams: 12/10/21 12:40 12/10/21 12:40 Labs: Lab Results 12/10/21 12/10/21 12/10/21 Range/Units 12:40 12:40 12:40 WBC 7.9 (4.5-11.0) X10^3/uL RBC 4.71 (4.0-5.2) X10^6/uL Hgb 14.1 (12.0-16.0) g/dL Hct 41.4 (36-46) % MCV 87.9 (80-100) fL MCH 29.9 (26-34) PG MCHC 34.1 (30-36) % RDW 12.4 (11.6-14.8) % Plt Count 280 (150-400) X10^3/uL Neut % (Auto) 56.9 (50-75) % Lymph % (Auto) 33.5 (25-40) % [place] % (Auto) 8.5 (3-14) % Eos % (Auto) 0.3 L (2-4) % Baso % (Auto) 0.8 (0-2) % Neut # (Auto) 4500 (2962-2974) /uL Lymph # (Auto) 2600 (1208-1590) /uL [place] # (Auto) 700 (0-900) /uL Eos # (Auto) 0 (0-450) /uL Baso # (Auto) 100 (0-100) /uL PT 12.0 (10.1-12.7) SECONDS INR 1.1 (0.9-1.3) APTT 36 (26.4-36.2) SECONDS Sodium 138 (137-145) mmol/L Potassium 4.2 (3.4-5.1) mmol/L Chloride 104 (98-107) mmol/L Carbon Dioxide 25 (22-32) mmol/L BUN 14 (7-17) mg/dL Creatinine 0.91 (0.52-1.04) mg/dL Estimated GFR > 60.0 (>60) mL/min BUN/Creatinine Ratio 15.4 (6-22) Glucose 103 (80-110) mg/dL Calcium 10.2 (8.4-10.2) mg/dL Total Bilirubin 0.7 (0.2-1.3) mg/dL AST 32 (14-36) IU/L ALT 19 (<35) IU/L Alkaline Phosphatase 68 (38-126) U/L Total Protein 7.7 (6.3-8.2) g/dL Albumin 4.6 (3.5-5.0) g/dL Globulin 3.1 (1.7-4.1) g/dL Albumin/Globulin Ratio 1.5 (1.0-2.8) Lipase 150 (23-300) U/L Imaging Data US - abdomen: Radiologist's Impression: PROCEDURE:? US ABDOMEN LIMITED ? INDICATIONS:? TIGHT BAND AROUND ABDOMEN. FOLLOW UP ULTRASOUND YESTERDAY - KNOWN GALLSTONE. ? TECHNIQUE:? Real-time scanning was performed of the abdominal and retroperitoneal organs, with image documentation.? ? COMPARISON:? [facility], , US ABDOMEN COMPLETE, 12/09/2021, 10:55. ? FINDINGS:? ? Liver:? Liver is normal in size and homogeneous in echotexture.? ? Gallbladder:? Redemonstration of previously seen non mobile gallstone within the gallbladder neck measuring approximately 3-4 mm in size.? There is no wall thickening.? No pericholecystic fluid.? No abnormal sonographic Aldrich sign.? Additional mobile gallstones are seen in the gallbladder body.? ? Biliary ducts:? Intrahepatic bile ducts are non-dilated.? Extrahepatic bile duct caliber measures 2 mm.? Normal is 6-7 mm or less in diameter, or 10 mm or less post-cholecystectomy.? ? Pancreas:? Pancreas not well seen on today's study. ? Miscellaneous:? No free abdominal fluid.? ? ? IMPRESSION:? ? 1. Redemonstration of known cholelithiasis as well as a 3-4 mm non mobile gallstone within the gallbladder neck.? Otherwise, no sonographic evidence for acute cholecystitis. ? ? 2. No biliary ductal dilatation.? ? MDM Narrative Medical decision making narrative: Patient was evaluated today for her gallbladder. Symptoms today are similar to yesterday however pain continues and she presents with concerns that it might be worse. Due to COVID restrictions no elective surgeries are being done and as result having her gallbladder removed has been held for now. Her pain in her upper right quadrant comes and goes she describes it to be a pressure sensation at this point no reported nausea vomiting diarrhea ultrasound demonstrates a cholelithiasis. Gallbladder appears stable no evidence of any infection and as result patient will be discharged home. Upper scribe's some Bentyl for her pain and advised her to follow-up with her PCP. Patient will be discharged home Discharge Plan Departure Patient Disposition: Home Clinical Impression: Cholelithiasis Instructions: DI for Gallstones Activity Restrictions/Additional Instructions: You were evaluated today for a gallstone. I do not see any evidence of any infection at this point. I sent a prescription over to your pharmacy request for Bentyl this medication will help with pain associated with the gallbladder. Take this medication as needed for discomfort or for pain. I would follow-up with your PCP for a HIDA scan to be scheduled outpatient. Prescriptions: New dicyclomine 20 mg tablet 20 mg PO QID Qty: 14 0RF No Action losartan 50 MG tablet 50 mg PO DAILY 0RF metoprolol succinate [Toprol XL] 25 MG tablet extended release 24 hr 25 mg PO DAILY 0RF magnesium oxide 400 mg magnesium tablet 400 mg PO DAILY 0RF loratadine PO 0RF multivitamin with minerals PO 0RF Referrals: Jaja Ratliff MD [Primary Care Provider] -
[2021-12-10 12:52] LABS: Add Manual Diff / Slide Review NO; Basophils Absolute Auto 100 /uL (0-100); Basophils Percent Auto 0.8 % (0-2); Eosinophils Absolute Auto 0 /uL (0-450); Eosinophils Percent Auto 0.3 % (2-4); Hematocrit 41.4 % (36-46); Hemoglobin 14.1 g/dL (12.0-16.0); Lymphocytes Absolute Auto 2600 /uL (1100-4500); Lymphocytes Percent Auto 33.5 % (25-40); Mean Corpuscular HGB Conc 34.1 % (30-36); Mean Corpuscular Hemoglobin 29.9 PG (26-34); Mean Corpuscular Volume 87.9 fL (80-100); Monocytes Absolute Auto 700 /uL (0-900); Monocytes Percent Auto 8.5 % (3-14); Neutrophils Absolute Auto 4500 /uL (1500-7000); Neutrophils Percent Auto 56.9 % (50-75); Platelet Count 280 X10^3/uL (150-400); Red Blood Cell Count 4.71 X10^6/uL (4.0-5.2); Red Cell Distribution Width 12.4 % (11.6-14.8); White Blood Cell Count 7.9 X10^3/uL (4.5-11.0)
[2021-12-10] MEDS: SODIUM CHLORIDE 0.9% 1,000 ML 150 ML IV (12:54)
[2021-12-10 13:04] LABS: Alanine Aminotransferase 19 IU/L (<35); Albumin 4.6 g/dL (3.5-5.0); Albumin Globulin Ratio 1.5 (1.0-2.8); Alkaline Phosphatase 68 U/L (38-126); Aspartate Aminotransferase 32 IU/L (14-36); BUN Creatinine Ratio 15.4 (6-22); Bilirubin Total 0.7 mg/dL (0.2-1.3); Blood Urea Nitrogen 14 mg/dL (7-17); Calcium 10.2 mg/dL (8.4-10.2); Carbon Dioxide 25 mmol/L (22-32); Chloride 104 mmol/L (98-107); Estimated Glomerular Filt Rate > 60.0 mL/min (>60); Globulin 3.1 g/dL (1.7-4.1); Glucose 103 mg/dL (80-110); HEMOLYSIS 19 (0-50); Lipase 150 U/L (23-300); Potassium 4.2 mmol/L (3.4-5.1); Sodium 138 mmol/L (137-145); Total Protein 7.7 g/dL (6.3-8.2)
[2021-12-10 13:55] VITALS: BP 126/60; PULSE 78; RESP 14; O2SAT 99
[2021-12-10 14:03] LABS: INR 1.1 (0.9-1.3)
[2021-12-10 14:05] LABS: PTT Partial Thromboplastin Tim 36 SECONDS (26.4-36.2)
== END 2021-12-10 14:30 | disposition home or self-care (01) ==
PROVIDERS: Emergency Medicine; Emergency Provider Physician Assistant; PCP Family Medicine
DX: K80.20 Calculus of gallbladder without cholecystitis without obstruction (principal); Z87.891 Personal history of nicotine dependence
CPT/HCPCS: 36415; 76705; 80053; 83690; 85025; 85610; 85730; 96360; 96361; 99284

== ENCOUNTER 2021-12-11 15:22 | Observation (INO) | payer MEDICARE, SELFPAY ==
[2021-12-11 15:30] VITALS: BP 162/75; PULSE 95; RESP 17; TEMP 36.5; O2SAT 99; BMI 25.4
[2021-12-11 15:52] LABS: Add Manual Diff / Slide Review NO; Basophils Absolute Auto 0 /uL (0-100); Basophils Percent Auto 0.6 % (0-2); Eosinophils Absolute Auto 100 /uL (0-450); Eosinophils Percent Auto 0.7 % (2-4); Hematocrit 42.8 % (36-46); Hemoglobin 14.5 g/dL (12.0-16.0); Lymphocytes Absolute Auto 3000 /uL (1100-4500); Lymphocytes Percent Auto 41.1 % (25-40); Mean Corpuscular Hemoglobin 29.7 PG (26-34); Mean Corpuscular Volume 87.2 fL (80-100); Monocytes Absolute Auto 600 /uL (0-900); Monocytes Percent Auto 7.9 % (3-14); Neutrophils Absolute Auto 3600 /uL (1500-7000); Neutrophils Percent Auto 49.7 % (50-75); Platelet Count 285 X10^3/uL (150-400); Red Cell Distribution Width 12.6 % (11.6-14.8); White Blood Cell Count 7.2 X10^3/uL (4.5-11.0)
--- NOTE | 2021-12-11 15:52 | ED.ABDPAIN ---
HPI - Abdominal Pain <Nabil Wright PA-C - Last Filed: 12/12/21 12:01> General Chief Complaint: Abdominal Pain Stated Complaint: Gallbladder Pain Time Seen by Provider: 12/11/21 15:30 Source: patient Mode of arrival: Ambulatory History of Present Illness HPI narrative: Patient is a 66-year-old female presenting to the emergency department today for evaluation right upper quadrant abdominal pain. Patient states that she has had intermittent pain ?since November? in notes that she has been to the emergency department 3 days in the room now. She states that she was in contact with Dr. Paulino and states that she is going to have her gallbladder removed today. The patient denies fever, chills, chest pain, cough, shortness of breath, vomiting, dysuria, hematuria, or any other concerning symptoms. Patient states she was unable to eat anything since 8:00 a.m. this morning due to the pain. No further concerns were voiced at this time. Related Data Home Medications Medication Instructions Recorded Confirmed magnesium oxide 400 mg PO DAILY 04/22/21 12/11/21 losartan 50 mg tablet 50 mg PO DAILY 12/11/21 12/11/21 metoprolol succinate 25 mg 25 mg PO DAILY 12/11/21 12/11/21 tablet,extended release 24 hr Previous Rx's Medication Instructions Recorded hydrocodone 5 mg-acetaminophen 325 1 tab PO Q8H PRN #7 tab 12/12/21 mg tablet Allergies Allergy/AdvReac Type Severity Reaction Status Date / Time Penicillins [PENICILLINS] Allergy Severe Swelling Verified 12/12/21 09:51 of Lip/Tongue/Throat Sulfa (Sulfonamide Allergy Severe Swelling Verified 12/12/21 09:51 Antibiotics) of [SULFA (SULFONAMIDE Lip/Tongue/Throat ANTIBIOTICS)] Review of Systems <Nabil Wright PA-C - Last Filed: 12/12/21 12:01> Constitutional Constitutional: Denies chills, Denies fatigue, Denies fever(s), Denies frequent falls, Denies lethargy and Denies weakness ENT Ears, Nose, Mouth, and Throat: Denies neck pain Cardiovascular Cardiovascular: Denies chest pain, Denies irregular heart rhythm, Denies lightheadedness, Denies palpitations, Denies dyspnea, Denies dyspnea on exertion and Denies orthopnea Respiratory Respiratory: Denies cough, Denies dyspnea, Denies dyspnea on exertion and Denies wheezing Gastrointestinal Gastrointestinal: Reports abdominal pain, Denies change in bowel habits, Reports diarrhea, Reports nausea and Denies vomiting Genitourinary Genitourinary: Denies hematuria, Denies flank pain, Denies urinary incontinence and Denies urinary urgency Musculoskeletal Musculoskeletal: Denies back pain, Denies muscle weakness, Denies neck pain, Denies numbness and Denies tingling Integumentary/Breasts Skin/Breast: Denies pruritus, Denies erythema, Denies rash and Denies wounds Neurologic Neurologic: Denies frequent falls, Denies numbness, Denies tingling and Denies weakness Endocrine Endocrine: Denies fatigue and Denies palpitations Allergic/Immunologic Allergic/Immunologic: Denies wheezing Patient History <Nabil Wright PA-C - Last Filed: 12/12/21 12:01> Medical History Abnormal blood creatinine level Abnormal glandular Papanicolaou smear of cervix Age-related cataract of both eyes Atrial premature beats Candidiasis of vulva and vagina Dry age-related macular degeneration Hypertension Meniere's disease, bilateral Other hyperlipidemia Palpitations Periodontal disease Raynauds phenomenon Sebaceous cyst Social History household members: other Smoking Status: Former smoker Smoking Status: Former smoker alcohol intake frequency: holidays/special occasions only Substance Use Type: does not use Exam <Nabil Wright PA-C - Last Filed: 12/12/21 12:01> Narrative Exam Narrative: GENERAL: 66 year old patient appears stated age. Well-developed patient, in mild distress. HEAD: Atraumatic. Normocephalic. EYES: Pupils equal round and reactive. Extraocular motions intact. No scleral icterus. No injection or drainage. ENT: Nose without bleeding, purulent drainage. Throat without erythema, tonsillar hypertrophy or exudate. Airway patent. NECK: Trachea midline. Non tender CARDIOVASCULAR: Regular rate and rhythm without murmurs, gallops, or rubs. RESPIRATORY: Clear to auscultation. Breath sounds equal bilaterally. No wheezes, rales, or rhonchi. GASTROINTESTINAL: Abdomen soft, nondistended. Tenderness to palpation along the right upper quadrant of the abdomen. Negative Aldrich sign. No pulsatile masses or surgical scars noted. EXTREMITIES: No edema or joint tenderness. BACK: Nontender without deformity or crepitance. No flank tenderness. NEURO: AOx3. SKIN: No rash or erythema of visible areas Initial Vital Signs Initial Vital Signs: Vital Signs Temperature 97.7 F 12/11/21 15:30 Pulse Rate 95 H 12/11/21 15:30 Respiratory Rate 17 12/11/21 15:30 Blood Pressure 162/75 H 12/11/21 15:30 Pulse Oximetry 99 12/11/21 15:30 Course <Nabil Wright PA-C - Last Filed: 12/12/21 12:01> Course Course Narrative: CBC, CMP, lipase, COVID test. Orders Ordered: Discontinued Medications Acetaminophen (Acetaminophen 325 Mg Tablet) 975 mg PO NOW ONE Stop: 12/12/21 08:08 Last Admin: 12/12/21 09:48 Dose: 975 mg Documented by: TERESA Acetaminophen (Acetaminophen 325 Mg Tablet) 650 mg PO Q6HR PRN PRN Reason: Fever/Mild Pain (1-3) Last Admin: 12/13/21 08:47 Dose: 325 mg Documented by: SMILEY Hydrocodone Bitart/Acetaminophen (Hydrocodone/Acet 5/325 Tablet) 1 tab PO Q4HR PRN PRN Reason: Pain, Moderate (4-6) Benzocaine (Benzocaine/Menthol 1 Radha Pkt) 1 each PO PRN PRN PRN Reason: Sore Throat Benzocaine (Benzocaine/Menthol 1 Radha Pkt) 1 each PO Q1HR PRN PRN Reason: Sore Throat Last Admin: 12/12/21 18:00 Dose: 1 each Documented by: SMILEY Bupivacaine HCl (Bupivacaine 0.5% (Pf) Vial) 20 ml INJ NOW ONE Stop: 12/12/21 11:24 Last Admin: 12/12/21 11:23 Dose: 8 ml Documented by: TOMMIE Enoxaparin Sodium (Enoxaparin 40 Mg/0.4 Ml Syringe) 40 mg SUBCUT DAILY LORE Last Admin: 12/13/21 08:47 Dose: Not Given Documented by: SMILEY Epinephrine HCl (Epinephrine 1 Mg/Ml) 0.2 mg IM NOW ONE Stop: 12/12/21 11:25 Last Admin: 12/12/21 11:25 Dose: 0.2 mg Documented by: TOMMIE Fentanyl (Fentanyl 100 Mcg/2 Ml Inj) 0 mcg IV Q5M PRN PRN Reason: Pain, Moderate (4-6) Last Admin: 12/12/21 12:40 Dose: 50 mcg Documented by: Admin: 12/12/21 12:26 Dose: 50 mcg Documented by: TERESA Hydromorphone HCl (Hydromorphone 2 Mg Inj) 0 mg IV Q5MIN PRN PRN Reason: Pain, Mild (1-3) Last Admin: 12/12/21 13:05 Dose: 0.5 mg Documented by: Admin: 12/12/21 12:53 Dose: 0.5 mg Documented by: Admin: 12/12/21 12:45 Dose: 0.5 mg Documented by: Admin: 12/12/21 12:31 Dose: 0.5 mg Documented by: TERESA Hydromorphone HCl (Hydromorphone 1 Mg Inj) 0.5 mg IV Q2H PRN PRN Reason: Pain, Moderate (4-6) Hydroxyzine HCl (Hydroxyzine 50 Mg/Ml Inj) 25 mg IM NOW PRN PRN Reason: Pain, Mild (1-3) Last Admin: 12/12/21 12:36 Dose: 25 mg Documented by: TERESA Hydroxyzine Pamoate (Hydroxyzine Pamoate 25 Mg Capsule) 25 mg PO NOW PRN PRN Reason: Pain, Mild (1-3) Lactated Ringer's (Lactated Ringers) 1,000 mls @ 100 mls/hr IV CONT LORE Last Admin: 12/12/21 03:33 Dose: 100 mls/hr Documented by: Infusion: 12/12/21 03:33 Dose: 100 mls/hr Documented by: Admin: 12/11/21 17:22 Dose: 100 mls/hr Documented by: FAUSTINO Lactated Ringer's (Lactated Ringers) 1,000 mls @ 42 mls/hr IV CONT LORE Last Infusion: 12/12/21 13:17 Dose: 0 mls/hr Documented by: Admin: 12/12/21 12:46 Dose: 42 mls/hr Documented by: Infusion: 12/12/21 12:23 Dose: 0 mls/hr Documented by: Admin: 12/12/21 09:49 Dose: 42 mls/hr Documented by: TERESA Clindamycin Phosphate (Cleocin) 900 mg in 50 mls @ 50 mls/hr IV NOW ONE Stop: 12/12/21 12:19 Last Infusion: 12/12/21 10:53 Dose: 0 mls/hr Documented by: Admin: 12/12/21 10:43 Dose: 50 mls/hr Documented by: ARMANI Lidocaine HCl (Lidocaine 1% 20 Ml) 20 ml INJ NOW ONE Stop: 12/12/21 11:24 Last Admin: 12/12/21 11:24 Dose: 8 ml Documented by: TOMMIE Losartan Potassium (Losartan 50 Mg Tablet) 50 mg PO DAILY [facility] Last Admin: 12/12/21 06:07 Dose: Not Given Documented by: Admin: 12/12/21 05:51 Dose: 50 mg Documented by: MAREK Losartan Potassium (Losartan 50 Mg Tablet) 50 mg PO DAILY [facility] Last Admin: 12/13/21 08:11 Dose: Not Given Documented by: Admin: 12/13/21 06:04 Dose: 50 mg Documented by: BERNARD Metoclopramide HCl (Metoclopramide 10 Mg/2 Ml Inj) 10 mg IV NOW PRN PRN Reason: Nausea And Vomiting Metoprolol Succinate (Metoprolol Er 25 Mg Tablet) 25 mg PO DAILY [facility] Last Admin: 12/12/21 06:07 Dose: Not Given Documented by: Admin: 12/12/21 05:51 Dose: 25 mg Documented by: MAREK Metoprolol Succinate (Metoprolol Er 25 Mg Tablet) 25 mg PO DAILY [facility] Last Admin: 12/13/21 08:11 Dose: Not Given Documented by: Admin: 12/13/21 06:05 Dose: 25 mg Documented by: BERNARD Morphine Sulfate (Morphine 4 Mg/Ml Inj) 4 mg IV Q4HR [facility] Last Admin: 12/12/21 14:52 Dose: Not Given Documented by: Admin: 12/12/21 09:56 Dose: Not Given Documented by: Admin: 12/12/21 05:44 Dose: Not Given Documented by: Admin: 12/12/21 00:51 Dose: Not Given Documented by: Admin: 12/11/21 20:41 Dose: Not Given Documented by: Admin: 12/11/21 17:22 Dose: Not Given Documented by: FAUSTINO Naloxone HCl (Naloxone 0.4 Mg/Ml Vial) 0.2 mg IV Q2MIN PRN PRN Reason: Opiate Reversal Stored In Pharmacy 0 each PO . LORE Ondansetron HCl (Ondansetron 4 Mg/2 Ml Inj) 4 mg IV Q6HR PRN PRN Reason: Nausea And Vomiting Ondansetron HCl (Ondansetron 4 Mg/2 Ml Inj) 4 mg IV NOW ONE Stop: 12/12/21 08:08 Last Admin: 12/12/21 14:52 Dose: Not Given Documented by: SMILEY Ondansetron HCl (Ondansetron 4 Mg/2 Ml Inj) 4 mg IV NOW PRN PRN Reason: Nausea And Vomiting Last Admin: 12/12/21 12:31 Dose: 4 mg Documented by: TERESA Ondansetron HCl (Ondansetron 4 Mg/2 Ml Inj) 4 mg IV Q6HR PRN PRN Reason: Nausea And Vomiting Oxycodone HCl (Oxycodone Ir 5 Mg Tablet) 5 mg PO PACUNOW PRN PRN Reason: Mild or moderate pain Last Admin: 12/12/21 12:58 Dose: 5 mg Documented by: TERESA Consultations Consultation #1: Consult with Dr. Paulino (general surgery). Recommends ordering CBC, CMP, and lipase on patient for plans for surgery in the morning. Additionally, recommended that I schedule medications for the patient until surgery in the morning due to his lack of remote access from home. Time: 15:40 Vital Signs Vital signs: Vital Signs - 8 hr 12/11/21 15:30 Temperature 97.7 F Pulse Rate 95 H Respiratory Rate 17 Blood Pressure 162/75 H Pulse Oximetry 99 MDM - Abdominal Pain <Nabil Wright PA-C - Last Filed: 12/12/21 12:01> Lab Data Result diagrams: 12/11/21 15:46 12/11/21 15:46 MDM Narrative Medical decision making narrative: To consider cholelithiasis versus cholecystitis versus choledocholithiasis versus acute cholangitis versus gallstone pancreatitis versus diverticulitis. Discussed plan with patient to have her admitted overnight with plans for surgery in the morning. Patient expresses understanding and agrees to plan. Discharge Plan Departure Patient Disposition: Admitted to Surgery Clinical Impression: Cholelithiasis Admit Date/Time: 12/11/21 15:41 Admit Provider: Jose Paulino
[2021-12-11 15:56] VITALS: PULSE 90; RESP 18; O2SAT 100
[2021-12-11 16:06] LABS: Alanine Aminotransferase 21 IU/L (<35); Albumin 4.9 g/dL (3.5-5.0); Albumin Globulin Ratio 1.4 (1.0-2.8); Alkaline Phosphatase 77 U/L (38-126); Aspartate Aminotransferase 33 IU/L (14-36); Bilirubin Total 0.6 mg/dL (0.2-1.3); Blood Urea Nitrogen 12 mg/dL (7-17); Calcium 10.5 mg/dL (8.4-10.2); Carbon Dioxide 26 mmol/L (22-32); Chloride 105 mmol/L (98-107); Estimated Glomerular Filt Rate > 60.0 mL/min (>60); Globulin 3.4 g/dL (1.7-4.1); Glucose 105 mg/dL (80-110); HEMOLYSIS < 15 (0-50); Lipase 182 U/L (23-300); Potassium 3.7 mmol/L (3.4-5.1); Sodium 141 mmol/L (137-145); Total Protein 8.3 g/dL (6.3-8.2)
[2021-12-11 16:12] VITALS: BP 134/68; PULSE 84; RESP 18; O2SAT 98
[2021-12-11 16:32] LABS: COVID19 -Nasal RAPID Negative (Negative)
[2021-12-11 16:40] VITALS: BP 147/68; PULSE 89; RESP 18; O2SAT 99
[2021-12-11 17:00] VITALS: BMI 25.4
[2021-12-11] MEDS: LACTATED RINGERS 1,000 ML 100 ML IV (17:22)
[2021-12-11 18:40] VITALS: BP 162/71; PULSE 89; RESP 14; TEMP 36.8; O2SAT 99
[2021-12-11 20:01] VITALS: BP 136/79; PULSE 83; RESP 16; TEMP 36.4; O2SAT 93
--- NOTE | 2021-12-11 22:42 | PC.NURSE ---
Addendum entered by Esther Gonzales R.N. 12/12/21 05:30: 0430 Patient awakened, startled, not knowing where she was. Complained of feeling lightheaded and weak. Patient felt she was having a panic attack. VSS except HR fluctuating 90's-120's. Was shivering. Spent time with patient providing reassurance and discussing upcoming surgery this morning. HR gradually returned to 80 range and other symptoms also resolved. Patient is currently asleep. Original Note: Patient is alert and oriented. Breath sounds CTA with RA sat of 93%. HRR. Denied nausea. Denied abdominal pain at time of assessment and declined scheduled Morphine. BT hypoactive; states she had loose stools earlier this morning. Denied dysuria, frequency or urgency with urination. Independent with mobility and steady on feet. Fall risk score is low. Is aware she will be NPO for surgery starting at 0000.
[2021-12-12] VITALS (19 sets, daily range): BP systolic 112–162; BP diastolic 52–92; PULSE 75–105; RESP 11–22; TEMP 34.7–36.6; O2SAT 97–100; BMI 25.4
--- NOTE | 2021-12-12 | PATH_ITS ---
[facility] Accession Number: [id number] No. of containers..01 Tissue . 01 Material submitted: . gallbladder - GALLBLADDER . 02 Diagnosis: Gallbladder, Cholecystectomy: Chronic cholecystitis with cholelithiasis. Negative for dysplasia and malignancy. MRV 12/17/2021 1247 Local . 02 Electronically signed: . Hien Ruiz MD, Pathologist NPI- [id number] . 01 Gross description: . Received in formalin, labeled with the patient's name and additionally labeled gallbladder, is a gallbladder measuring 5.5 x 2.0 x 1.3 cm. The serosal surface is amezcua-morocho smooth and glistening. The liver bed surface is amezcua-brown and shaggy. The cystic duct margin is inked blue. The specimen is opened through the tortuous cystic duct revealing approximately 5 mL of bile sludge and a black bosselated calculi measuring 0.5 cm in greatest dimension lodged just proximal to the cystic duct. The mucosal surface is green and velvety with no masses or lesions identified. Furniture Mover Driver sections, including the blue-inked cystic duct margin are submitted in cassette A1. ([id number]) /MRV 12/15/2021 1442 Local . 02 Pathologist provided ICD-10: K80.60 . 02 CPT . 827571 Specimen Comment: A courtesy copy of this report has been sent to [phone] Performed at: 01 [facility] [address] [facility] [address] [id number] MD Carlos Palmer MD Phone: [phone] Performed at: 02 [facility] [address] [place] [id number] MD Hien Ruiz MD Phone: [phone]
[2021-12-12] MEDS: LACTATED RINGERS 1,000 ML 100 ML IV (03:33)
[2021-12-12] MEDS: LOSARTAN 50 MG TABLET PO (05:51)
[2021-12-12] MEDS: METOPROLOL ER 25 MG TABLET PO (05:51)
[2021-12-12] MEDS: ACETAMINOPHEN 325 MG TABLET 975 MG PO (09:48)
[2021-12-12] MEDS: LACTATED RINGERS 1,000 ML 42 ML IV ×2 (09:49→12:46)
--- NOTE | 2021-12-12 10:16 | P.HP_ITS ---
History of Present Illness History of Present Illness Date Patient Seen: 12/12/21 Time Patient Seen: 10:16 Chief complaint: Gallbladder Pain Narrative: Emilie is a 66-year-old woman who has been to the emergency room twice in the past week with right upper quadrant pain. She was found to have gallstones with a gallstone lodged in the neck of the gallbladder. She has had no gallbladder wall thickening, pericholecystic fluid or leukocytosis. Her liver enzymes have been normal. She has been sent home from the ER and instructed to come into the office to discuss elective surgery. Her pain has recurred and has become more severe and she has returned to the ER again with severe pain. Her labs have remained normal. She has never had abdominal surgery before. Patient History Medical History Abnormal blood creatinine level Abnormal glandular Papanicolaou smear of cervix Age-related cataract of both eyes Atrial premature beats Candidiasis of vulva and vagina Dry age-related macular degeneration Hypertension Meniere's disease, bilateral Other hyperlipidemia Palpitations Periodontal disease Raynauds phenomenon Sebaceous cyst Family & Social History Social History: household members other Prior Living Arrangements House Safety & Behavioral: Feels Safe in Current Yes Environment Been Physically Hurt or No Threatened By a Person Tobacco & Substance use: Smoking Status Former smoker alcohol intake frequency holiday/special occasion Substance Use Type does not use Meds Home Medications and Allergies Home Medications Medication Instructions Recorded Confirmed Type magnesium oxide 400 mg PO DAILY 04/22/21 12/11/21 History losartan 50 mg tablet 50 mg PO DAILY 12/11/21 12/11/21 History metoprolol succinate 25 mg 25 mg PO DAILY 12/11/21 12/11/21 History tablet,extended release 24 hr Allergies Allergy/AdvReac Type Severity Reaction Status Date / Time Penicillins [PENICILLINS] Allergy Severe Swelling Verified 12/12/21 09:51 of Lip/Tongue/Throat Sulfa (Sulfonamide Allergy Severe Swelling Verified 12/12/21 09:51 Antibiotics) of [SULFA (SULFONAMIDE Lip/Tongue/Throat ANTIBIOTICS)] Exam Vital Signs (past 8 hours): - 12/12/21 04:17 12/12/21 05:51 12/12/21 08:07 Temperature 97.8 F 97.9 F Pulse Rate 96 H 96 H 86 Respiratory Rate 16 16 Blood Pressure 134/80 146/83 H 139/80 Pulse Oximetry 98 99 12/12/21 09:43 Temperature 97.5 F L Pulse Rate 85 Respiratory Rate 20 Blood Pressure 141/84 H Pulse Oximetry 100 Oxygen Delivery Method Room Air Oxygen Flow Rate 0 Const General: healthy appearing Resp Effort & Inspection: normal respiratory effort GI Palpation: soft Other: Tender to palpation in the right upper quadrant. There is a palpable mass at the approximate location of the gallbladder fundus. Objective Labs Result Diagrams: 12/11/21 15:46 12/11/21 15:46 Labs: Laboratory Results - last 24 hr 12/11/21 12/11/21 12/11/21 15:46 15:46 15:50 WBC 7.2 RBC 4.90 Hgb 14.5 Hct 42.8 MCV 87.2 MCH 29.7 MCHC 34.0 RDW 12.6 Plt Count 285 Neut % (Auto) 49.7 L Lymph % (Auto) 41.1 H [place] % (Auto) 7.9 Eos % (Auto) 0.7 L Baso % (Auto) 0.6 Neut # (Auto) 3600 Lymph # (Auto) 3000 [place] # (Auto) 600 Eos # (Auto) 100 Baso # (Auto) 0 Sodium 141 Potassium 3.7 Chloride 105 Carbon Dioxide 26 BUN 12 Creatinine 0.86 Estimated GFR > 60.0 BUN/Creatinine Ratio 14.0 Glucose 105 Calcium 10.5 H Total Bilirubin 0.6 AST 33 ALT 21 Alkaline Phosphatase 77 Total Protein 8.3 H Albumin 4.9 Globulin 3.4 Albumin/Globulin Ratio 1.4 Lipase 182 SARS-CoV-2 (PCR) Negative Assessment & Plan Assessment and plan (1) Cholelithiasis: Qualifiers: Cholelithiasis location: gallbladder Cholecystitis presence: without cholecystitis Biliary obstruction: without biliary obstruction Qualified Code(s): K80.20 - Calculus of gallbladder without cholecystitis without obstruc tion Status: Acute Plan 58-year-old woman with recurrent biliary colic with crescendo type pattern. Recommend laparoscopic cholecystectomy today and possible discharge from the hospital later today. We reviewed the risks and benefits and she would like to proceed. COVID-19 COVID-19 status: Negative Result date/Date tested (Pos, Neg/Pending): 12/11/21 Time Spent With Patient Critical Care time: I spent a total of [] minutes of critical care time on this patient's care today; this time is exclusive of procedural time.
[2021-12-12] MEDS: CLINDAMYCIN 900 MG/50 ML PIGGYBACK 50 MG IV (10:43)
--- NOTE | 2021-12-12 11:09 | SUR.OPER ---
Supine on padded OR bed, head on pillow, safety belt at thigh. Both arms secured on padded arm board <90 degrees abduction. Legs uncrossed. Padded footboard in place. Tape over blanket to secure lower legs.
[2021-12-12] MEDS: BUPIVACAINE 0.5% (PF) VIAL 20 ML INJ (11:23)
[2021-12-12] MEDS: LIDOCAINE 1% 20 ML INJ (11:24)
[2021-12-12] MEDS: EPINEPHrine 1 MG/ML 0.2 MG IM (11:25)
--- NOTE | 2021-12-12 12:08 | PM.OP.1 ---
Operative Date/Time/Diagnoses Date of procedure: 12/12/21 Time of procedure: 12:09 Pre-op diagnosis: Gallstones Post-op diagnosis: same Procedure & Clinicians Procedure: Laparoscopic cholecystectomy Same procedure as scheduled: Yes Surgeon: Jose Paulino Anesthesia Type: General Operative Notes Estimated Blood Loss (mL): 10 Procedure in detail: The patient was given preoperative antibiotic in the form of clindamycin. The patient was brought to the operating room, placed on the table in the supine position. General endotracheal anesthesia was induced. The abdomen was prepped and draped. A time-out was performed. We made a 1 cm infraumbilical incision. We dissected down to the base of the umbilical stalk using cautery. We grasped the umbilical stalk with a Ninfa clamp to elevate the abdominal wall. We scored the fascia in the midline with cautery 1 cm. We pierced the peritoneum with a Peon clamp. The Vikram port was placed and the abdomen was insufflated to 15 mmHg. A 5 mm 30 degree laparoscopic was inserted. There was no evidence of any injury from the entry. Next, we placed 5 mm ports in the subxiphoid position and right upper quadrant at the midclavicular line and anterior axillary line. Patient was then positioned in reverse Trendelenburg and the table was tilted to the left. The gallbladder was grasped at the dome and retracted cephalad. There were some adhesions of mesenteric tissue to the gallbladder which were carefully dissected with cautery to allow full retraction of the gallbladder. We then dissected the cystic structures with a combination of hook cautery and blunt dissection. We obtained a critical view. We placed hemoclips on the cystic duct and artery and divided the cystic duct and artery sharply between the clips. The gallbladder was then dissected off the liver and placed in a specimen retrieval bag. We irrigated the right upper quadrant and all the aspirate returned clear. We then removed the 5 mm ports under direct vision we removed the Vikram port. We then injected some local into the fascia and closed the fascia with 2 interrupted 0 Vicryl sutures. The skin incisions were closed with 4 Monocryl and Steri-Strips were applied. Band-Aids were applied over the Steri-Strips. EBL: 10 mL Specimen: Gallbladder Post-operative Condition: stable Disposition: PACU Plan for aftercare: Home later today if feeling well
[2021-12-12] MEDS: fentaNYL 100 MCG/2 ML INJ IV ×2 (12:26→12:40)
[2021-12-12] MEDS: HYDROMORPHONE 2 MG INJ IV ×4 (12:31→13:05)
[2021-12-12] MEDS: ONDANSETRON 4 MG/2 ML INJ IV (12:31)
[2021-12-12] MEDS: hydrOXYzine 50 MG/ML INJ 25 MG IM (12:36)
--- NOTE | 2021-12-12 12:41 | SUR.PHASEI ---
Patient c/o pain in her mid to upper back and states that it's hard to get in a deep breath; denies SOB or chest pain and denies nausea. Medicated for pain. VSS. Normal sinus rhythm on the monitor.
[2021-12-12] MEDS: OXYCODONE IR 5 MG TABLET PO (12:58)
--- NOTE | 2021-12-12 13:29 | SUR.PHASEI ---
Patient ready to be transferred upstairs but nurse at lunch and no one else available to take report.
[2021-12-12] MEDS: BENZOCAINE/MENTHOL 1 LOZ PKT 1 EACH PO (18:00)
[2021-12-13 01:08] VITALS: BP 148/75; PULSE 95; RESP 18; TEMP 36.4; O2SAT 100
--- NOTE | 2021-12-13 01:11 | PC.NURSE ---
pt has been voiding frequently, putting out anywhere from 250-800 ml of clear urine. Bladder scan done with a result of 294. will continue to monitor.
[2021-12-13 05:23] VITALS: BP 151/73; PULSE 89; RESP 16; TEMP 37.2; O2SAT 97
[2021-12-13 06:04] VITALS: BP 151/73; PULSE 89
[2021-12-13] MEDS: LOSARTAN 50 MG TABLET PO (06:04)
[2021-12-13 06:05] VITALS: BP 151/73; PULSE 89
[2021-12-13] MEDS: METOPROLOL ER 25 MG TABLET PO (06:05)
[2021-12-13 08:13] VITALS: BP 146/68; PULSE 81; RESP 18; TEMP 35.6; O2SAT 99
[2021-12-13] MEDS: ACETAMINOPHEN 325 MG TABLET 650 MG PO (08:47)
== END 2021-12-13 09:30 | disposition home or self-care (01) ==
LOC: ED 15:32 → AC 15:42
PROVIDERS: Admitting Provider Surgery; Emergency Provider Physician Assistant; PCP Family Medicine; Referring Provider Physician Assistant; Visit Provider Surgery
PROC: 0FT44ZZ Resection of Gallbladder, Percutaneous Endoscopic Approach (ICD-10-PCS; CPT 47562; principal; 2021-12-12 09:00)
DX: K80.10 Calculus of gallbladder with chronic cholecystitis without obstruction (principal); I10 Essential (primary) hypertension; Z20.822 Contact with and (suspected) exposure to COVID-19
CPT/HCPCS: 47562; 36415; 80053; 83690; 85025; 87635; 96361; 96372; 96374; 96375; 99219; 99283; C9803; G0378; J0171; J0330; J1100; J1170; J2250; J2405; J2704; J2765; J3010; J3410

== ENCOUNTER → 2023-09-20 10:58 | Outpatient (CLI) | payer MEDICARE, SELFPAY ==
--- NOTE | 2023-09-20 | DI.RAD.S_ITS ---
PROCEDURE: XR CERVICAL SPINE 4V OR 5V INDICATIONS: NECK PAIN TECHNIQUE: 5 views of the cervical spine were acquired. COMPARISON: None. FINDINGS: Bones: No fractures or dislocations to the T1 level. No suspicious bony lesions. There is severe cervical spondylosis. There is severe disc height loss and prominent uncovertebral joint osteophytes, which likely results in significant bony foraminal narrowing, at the levels of C3-C4 through C5-C6. Flexion and extension and neutral lateral per positions demonstrate a degree of abnormal motion at C2-C3. There is trace retrolisthesis on extension and trace anterolisthesis on flexion. There is no abnormal motion at other levels. Soft tissues: Prevertebral soft tissues are normal in thickness. IMPRESSION: Severe cervical spondylitic change. There is a degree of abnormal motion at C2-C3. Dictated by: Kamran Benitez M.D. on 09/20/2023 at 17:02 Approved by: Kamran Benitez M.D. on 09/20/2023 at 17:03
== END ==
LOC: RAD 10:59
PROVIDERS: PCP Family Medicine; Referring Provider Family Medicine; Visit Provider Family Medicine
DX: M54.2 Cervicalgia (principal); M47.812 Spondylosis without myelopathy or radiculopathy, cervical region
CPT/HCPCS: 72050

== ENCOUNTER → 2024-11-21 11:57 | Outpatient (CLI) | payer SELFPAY ==
--- NOTE | 2024-11-21 11:58 | DI.US.S_ITS ---
PROCEDURE: US ABDOMEN LIMITED INDICATIONS: SOFT TISSUE MASS - OVER LEFT SCAPULA TECHNIQUE: Real-time focused scanning was performed of the area of clinical concern, with image documentation. Color Doppler was also utilized. COMPARISON: [facility], CT, CT CERVICAL SPINE WITHOUT CONTRAST, 06/28/2020, 21:20. [facility], US, US ABDOMEN LIMITED, 12/10/2021, 13:21. FINDINGS: Scanning is performed at the area of clinical concern involving the left posterior lateral inferior shoulder lump. At this site, there is an ovoid subcutaneous lesion seen with an echotexture similar to the surrounding normal subcutaneous fat measuring 7.4 x 6 x 3 x 2.4 cm. No abnormal vascularity can be seen. IMPRESSION: 7.4 cm lipoma seen at the site of clinical concern involving the left posterior shoulder. Dictated by: Nikita Lo M.D. on 11/21/2024 at 12:55 Approved by: Nikita Lo M.D. on 11/21/2024 at 12:57
== END ==
PROVIDERS: PCP Family Medicine; Referring Provider Family Medicine; Visit Provider Family Medicine
DX: M79.89 Other specified soft tissue disorders (principal); D17.22 Benign lipomatous neoplasm of skin and subcutaneous tissue of left arm
CPT/HCPCS: 76705

== ENCOUNTER 2025-02-19 07:28 | Day surgery (SDC) | payer MEDICARE, OTHER, SELFPAY ==
[2025-02-12 10:38] VITALS: BMI 26.4
--- NOTE | 2025-02-19 | PATH_ITS ---
[facility] Accession Number: [id number] No. of containers..01 Tissue . 01 Material submitted: . back - LEFT UPPER BACK MASS . 01 Diagnosis: LEFT UPPER BACK MASS, EXCISION: Lipoma. MRV 02/21/2025 1058 Local . 01 Electronically signed: . Cindi Hastings DO, Pathologist NPI- [id number] . 01 Gross description: . Received in formalin with two identifiers and L upper back mass, is an encapsulated yellow soft tissue fragment, 6.6 x 5.7 x 3.7 cm. Inked blue and sectioned to reveal a cut surface that is yellow, soft, and homogeneous. Senior Brand Manager sections are submitted in A1-A2. ([id number]) /MRV 02/20/2025 1724 Local . 01 Pathologist provided ICD-10: D17.1 . 01 CPT . 644261 Specimen Comment: A courtesy copy of this report has been sent to [phone] Performed at: [address] [id number] MD Carlos Palmer MD Phone: [phone]
[2025-02-19] MEDS: LACTATED RINGERS 1,000 ML 42 ML IV (08:05)
--- NOTE | 2025-02-19 08:07 | SUR.OPER ---
right Lateral on a garcia bag, head on pillow, gel axillary roll in place, bottom leg bent with gel pad under knee to foot, upper leg straight and supported with pillows. Upper arm supported by pillows and secured over bottom arm to padded arm board. Safety belt at hip, tape over blanket lower legs.
[2025-02-19 08:14] VITALS: BP 140/88; PULSE 93; RESP 16; TEMP 36.6; O2SAT 100; BMI 26.4
--- NOTE | 2025-02-19 08:38 | P.HP_ITS ---
History of Present Illness History of Present Illness Date Patient Seen: 02/19/25 Time Patient Seen: 08:38 Chief complaint: Excisional bx of L upper back lipoma Narrative: Emilie is a 69-year-old woman who presents with a left upper back lipoma for excision. See the December note for details. [facility] Medical History (Updated 12/30/24 @ 11:45 by Jose Paulino MD) Abnormal blood creatinine level Meniere's disease, bilateral Abnormal glandular Papanicolaou smear of cervix Other hyperlipidemia Atrial premature beats Palpitations Sebaceous cyst Candidiasis of vulva and vagina Dry age-related macular degeneration Raynauds phenomenon Periodontal disease Age-related cataract of both eyes Hypertension Surgical History (Updated 02/12/25 @ 10:48 by Martita Bates RN) History of cataract extraction with lens replacement (2018) Hx of cholecystectomy (12/12/21) Social History household members: other Smoking Status: Former smoker alcohol intake: former Meds Home Medications and Allergies Home Medications Medication Instructions Recorded Confirmed Type magnesium oxide 400 mg PO DAILY 04/22/21 12/29/21 History losartan 50 mg tablet 50 mg PO DAILY 12/11/21 02/19/25 History metoprolol succinate 25 mg 25 mg PO DAILY 12/11/21 02/19/25 History tablet,extended release 24 hr Allergies Allergy/AdvReac Type Severity Reaction Status Date / Time Penicillins [PENICILLINS] Allergy Severe Swelling Verified 02/19/25 08:02 of Lip/Tongue/Throat Sulfa (Sulfonamide Allergy Severe Swelling Verified 02/19/25 08:02 Antibiotics) of [SULFA (SULFONAMIDE Lip/Tongue/Throat ANTIBIOTICS)] Exam Vital Signs (past 8 hours): - 02/19/25 08:14 Temperature 97.8 F Pulse Rate 93 H Respiratory Rate 16 Blood Pressure 140/88 Pulse Oximetry 100 Oxygen Delivery Method Room Air Oxygen Delivery Method Room Air Narrative Exam Narrative: Left upper back 6 cm lipoma Assessment & Plan Assessment and plan (1) Lipoma of back: Status: Acute Plan Excision of left upper back lipoma with MAC in the right lateral decubitus position. Time-Based Coding :: [TOTAL MINUTES] spent with patient and on the chart (including review of chart, obtaining history, exam, reviewing outside data, placing orders, documenting exam and treatment plan, and counseling patient) on [DATE]. 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
[2025-02-19] MEDS: CEFAZOLIN 2 GM/100 ML PREMIX 100 ML IV (08:50)
[2025-02-19] MEDS: LIDOCAINE 1% 20 ML INJ (09:04)
[2025-02-19] MEDS: BUPIVACAINE 0.5% W/ EPI (PF) 30 ML VIAL INJ (09:36)
--- NOTE | 2025-02-19 09:38 | PM.OP.1 ---
Operative Date/Time/Diagnoses Date of procedure: 02/19/25 Time of procedure: 09:38 Pre-op diagnosis: Left upper back mass Post-op diagnosis: same Procedure & Clinicians Procedure: Excisional biopsy left upper back mass Same procedure as scheduled: Yes Surgeon: Jose Paulino [employer] Supervisor: Kwasi James Anesthesia Type: MAC +/- Operative Notes Procedure in detail: The patient was brought to the operating room and MAC was administered. She was then positioned on a garcia bag in the right lateral decubitus position. Her left upper back was prepped and draped in the usual fashion and a time-out was performed. After injecting some lidocaine we created an 8 cm transverse incision over the mass. We dissected down until we reach the capsule of the lipoma. The lipoma was dissected off of the fascia of the left trapezius muscle. Additional local was injected into the muscle fascia and surrounding tissues. The mass appeared to be a lipoma and measured 8 cm x 6 cm x 3 cm. We then closed the wound in layers using multiple interrupted 3-0 Vicryl dermal sutures followed by a running 4-0 Monocryl subcuticular stitch. Steri-Strips and gauze were applied. EBL: 3 mL Specimen: Left upper back soft tissue mass, likely lipoma Post-operative Condition: stable Disposition: PACU
[2025-02-19 09:45] VITALS: BP 96/53; PULSE 96; RESP 18; TEMP 36.1; O2SAT 98
[2025-02-19 09:50] VITALS: BP 96/53; PULSE 97; RESP 17; O2SAT 97
[2025-02-19 09:55] VITALS: BP 108/65; PULSE 92; RESP 13; O2SAT 98
[2025-02-19 10:45] LABS: Alanine Aminotransferase 25 IU/L (<35)
[2025-02-19 11:18] LABS: Hepatitis B Surface Antigen NEGATIVE s/c (NEGATIVE)
[2025-02-19 11:36] LABS: HIV 1 & 2 Ab/Ag 4th Gen Combo NEGATIVE (NEGATIVE); Hep C Virus Ab w/Reflex Quant NEGATIVE s/c (NEGATIVE)
[2025-02-20 03:35] LABS: Hepatitis B Surf Ab Qualitativ Non Reactive (.)
== END 2025-02-19 10:38 | disposition home or self-care (01) ==
PROVIDERS: PCP Family Medicine; Referring Provider Surgery; Visit Provider Surgery
PROC: (CPT 21931; principal; 2025-02-19 08:45)
DX: D17.1 Benign lipomatous neoplasm of skin and subcutaneous tissue of trunk (principal); Z87.891 Personal history of nicotine dependence
CPT/HCPCS: 21931; 36415; J0690; J2405; J2704; J3010